=== PATIENT | female | born 1965 | race Caucasian/White ===

== ENCOUNTER 2016-02-25 06:16 | Inpatient (IN) | payer OTHER ==
--- NOTE | 2016-01-27 16:28 | History and Physical ---
History & Physical Date Jan 27, 2016. Chief Complaint Right knee pain History of Present Illness Julissa is a pleasant 50-year-old female who presents for preoperative evaluation prior to a right knee replacement. Patient states that they have been having pain in this knee for many years now, which has gradually worsened, it has now gotten to the point it is affecting her daily activities including walking, standing, going up and down steps. Patient has tried and failed conservative measures including previous cortisone injection, viscosupplementation, bracing, physical therapy, and PO NSAIDs with no relief, also had a knee arthroscopy in March 2015. At this point in time, patient has failed conservative measures and would like to proceed with a right knee replacement. Past Medical/Surgical History Medical Problems: (1) Back pain (2) DVT (deep venous thrombosis) (3) Incisional hernia (4) Pulmonary emboli (5) Pulmonary emboli (6) Pulmonary emboli Allergies Coded Allergies: No Known Allergies (Unverified , 04/29/14) Home Medications Scheduled Alprazolam (Xanax), 2 MG PO HS Apixaban (Eliquis), 5 MG PO BID Docusate Sodium (Colace), 100 MG PO DAILY Hydrochlorothiazide (Hctz), 25 MG PO DAILY Multivitamin (Multivitamin), 1 TAB PO DAILY Sertraline (Zoloft), 150 MG PO HS Sulindac ([place]inor[place]), 200 MG PO DAILY Scheduled PRN Lamotrigine (Lamictal), 100 MG PO DAILY PRN for Tramadol (Ultram), 100 MG PO TID PRN for Pain Physical Examination Skin: warm/dry, no rash Eyes: normal inspection, EOMI, sclerae normal ENT: normal ENT inspection, pharynx normal Head: normocephalic, atraumatic Neck: supple, no adenopathy, trachea midline Respiratory/Chest: lungs clear, normal breath sounds, no respiratory distress Cardiovascular: regular rate, rhythm, no edema, no murmur Addiitonal Comments: Right Knee Ankle ROM L * Active ROM - Factors: normal, Description: active pain free range of motion. Passive ROM - Factors: normal, Description: passive pain free range of motion. Ankle ROM R * Active ROM - Factors: normal, Description: active pain free range of motion. Passive ROM - Factors: normal, Description: passive pain free range of motion. Hip ROM L * Active ROM - Factors: normal, Description: active pain free range of motion. Passive ROM - Factors: normal, Description: passive pain free range of motion. Hip ROM R * Active ROM - Factors: normal, Description: active pain free range of motion. Passive ROM - Factors: normal, Description: passive pain free range of motion. Knee ROM L * Active ROM - Flexion: 120 degrees, Extension: 5 degrees, Factors: pain, Description: Active painful ROM. Knee ROM R * Active ROM - Flexion: 120 degrees, Extension: 5 degrees, Factors: pain, Description: Active painful ROM. Strength LE Normal Strength Description - Normal lower extremity: Bilateral. Knee * Inspection - Gait: Limp. Alignment - Right: varus, Clinical, Left: varus , Clinical. Ecchymosis - Right: negative, Left: negative. Effusion - Right: mild , Left: mild. Skin - Right: surgical scars, Left: surgical scars. Swelling - Right: mild, Left: mild. Maximum tenderness - Right: Medial Joint Line, Left: Medial Joint Line. Patella exam - Crepitation - Right: mild, Left: mild. Patella position - Right: neutral, Left: neutral. [facility]'s - medial - Left: Positive. Knee Normal Inspection - Atrophy - Right: Absent, Left: Absent. Patella exam - Apprehension - Right: Negative, Left: Negative. Q-angle - Right: Normal, Left: Normal. Mimi's - Right: Negative, Left: Negative. Posterior drawer - Right: Negative, Left: Negative. Anterior drawer - Right: Negative, Left: Negative. Valgus stress - Right: Negative, Left: Negative. Varus stress - Right: Negative , Left: Negative. Extensor lag - Right: Normal, Left: Normal. Neurovascular LE Normal Neurovascular examination including reflexes, sensation , and pulses is within normal limits. Diagnosis Right Knee DJD h/o Pulmonary embolism -will discuss with her PCP, discontinuing her Eliquis and bridge with lovenox. Right Knee Xray Xrays reviewed of the right knee showing findings consistent with degenerative joint disease including joint space narrowing, subchondral sclerosis and peripheral osteophyte formation. no acute bony pathology, overall varus alignment. Impression: degenerative joint disease of the right knee with no acute bony pathology noted. Plan of Treatment Further care discussed with patient and at this point in time has failed conservative measures and would like to proceed with a righ total knee replacement. Plan on discharge will be home with home health physical therapy. DVT prophalaxis with TEDs, SCDs and will also resume her Eliquis postop. Patient will have follow up appointment in our office two weeks post op for staple/suture removal and re-evaluation. Patient otherwise has no other questions or concerns.
[2016-02-04 11:02] VITALS: BMI 38.0
--- NOTE | 2016-02-04 11:38 | PAT Medication Instructions ---
Service Date Feb 04, 2016. Current Home Medication List Alprazolam (Xanax), 2 MG PO HS Apixaban (Eliquis), 5 MG PO BID Cyclobenzaprine Hcl (Flexeril), 10 MG PO HS Docusate Sodium (Colace), 100 MG PO HS Guaif/Pse/Codeine (Cheratussin Dac), 10 ML PO QAM Hydrochlorothiazide (Hctz), 25 MG PO QPM Hydrocodone/Acetaminophen 5MG/325MG ([place] 5MG/325MG), 1 TABLET PO Q4-6H PRN for Pain Multivitamin (Multivitamin), 1 TAB PO QAM Omeprazole (Prilosec), 20 MG PO HS PRN for RN Sertraline (Zoloft), 100 MG PO HS Sulindac (Clinoril), 200 MG PO BID Tramadol (Ultram), 100 MG PO Q6H PRN for Pain [Potassium], 99 MG PO PRN Medication Instructions For Your Scheduled Surgery - Instructions to be given by prescribing physician: Apixaban (Eliquis), 5 MG PO BID - Hold the following medications the morning of surgery: Multivitamin (Multivitamin), 1 TAB PO QAM [Potassium], 99 MG PO PRN Sulindac ([place]), 200 MG PO BID Guaif/Pse/Codeine (Cheratussin Dac), 10 ML PO QAM - Take the following medications the morning of surgery with a sip of water OTHERWISE NOTHING TO EAT OR DRINK AFTER MIDNIGHT: Hydrocodone/Acetaminophen 5MG/325MG ([place] 5MG/325MG), 1 TABLET PO Q4-6H PRN for Pain (may take if needed up to 4 hours prior to surgery) Tramadol (Ultram), 100 MG PO Q6H PRN for Pain (may take if needed up to 4 hours prior to surgery) - Take the following medications as scheduled the night before surgery: Sertraline (Zoloft), 100 MG PO HS Hydrochlorothiazide (Hctz), 25 MG PO QPM Cyclobenzaprine Hcl (Flexeril), 10 MG PO HS Docusate Sodium (Colace), 100 MG PO HS Alprazolam (Xanax), 2 MG PO HS Omeprazole (Prilosec), 20 MG PO HS PRN Hydrocodone/Acetaminophen 5MG/325MG ([place] 5MG/325MG), 1 TABLET PO Q4-6H PRN for Pain Tramadol (Ultram), 100 MG PO Q6H PRN for Pain Sulindac (Clinoril), 200 MG PO BID If you have any questions please call us at [phone] (Maureen Garcia PA-C) or [phone] or [phone]
[2016-02-04 12:34] LABS: BASO % 0.3 %; BASO ABS # 0.02 K/uL (0-0.2); COMPLETE YES; EOS % 1.5 %; HEMATOCRIT 42.1 % (37-47); IG% 0.3 %; LYMPH % 35.4 %; LYMPH ABS # 2.78 K/uL (1.2-3.4); MEAN CELL VOLUME 84.7 fL (80-100); MEAN CORPUSCULAR HEMOGLOBIN 29.2 pg (25-34); MEAN CORPUSCULAR HGB CONC 34.4 g/dl (32-36); MEAN PLATELET VOLUME 9.5 fL (7.4-10.4); MONO % 8.1 %; NEUT % 54.4 %; PLATELET COUNT 261 K/uL (130-400); RED BLOOD COUNT 4.97 M/uL (4.2-5.4); WHITE BLOOD COUNT 7.86 K/uL (4.8-10.8)
[2016-02-04 12:43] LABS: INR 0.9 (0.9-1.1); PARTIAL THROMBOPLASTIN RATIO 1.1
--- NOTE | 2016-02-04 12:46 | DIAGNOSTIC IMAGING REPORT ---
CHEST 2 VIEWS ROUTINE CLINICAL HISTORY: Preoperative chest COMPARISON STUDY: 08/13/2014 FINDINGS: The heart remains borderline enlarged. There is no failure. There is no focal pulmonary consolidation. There are no pleural effusions.[ IMPRESSION: No active disease in the chest. Electronically signed by: Rigoberto George M.D. 02/04/2016 12:44 PM
[2016-02-04 13:07] LABS: BUN/CREATININE RATIO 24.2 (10-20); CALCIUM 9.6 mg/dl (8.5-10.1); CREATININE 0.6 mg/dl (0.60-1.20)
[2016-02-04 13:17] LABS: ESTIMATED AVERAGE GLUCOSE 108 mg/dl; HA1C FLAG Normal (Normal)
[~2016-02-25] VITALS: Ht 162.6 cm; Wt 101.3 kg
[2016-02-25] VITALS (9 sets, daily range): BP systolic 95–128; BP diastolic 53–83; PULSE 72–85; TEMP 36.3–36.9; O2SAT 89–98; Ht 162.6 cm; Wt 101.3 kg
[~2016-02-25 06:16] MED LIST: ACETAMINOPHEN 500 MG TAB PO SCH; ALPR-385 PO; APIX1TAB3 PO; CEFAZOLIN 2000 MG/60 ML D5W 60 ML IV SCH; CYCL10TA6 PO; CeleBREX 200 MG CAP PO SCH; DEXAMETHASONE 4 MG TAB PO SCH; DOCU-94 PO; FAMOTIDINE 20 MG TAB PO SCH; GABAPENTIN 300 MG CAP PO SCH; HYDR-5688 PO; HYDR25TA4 PO; LACTATED RINGER'S 1000ML IV SCH; LACTATED RINGER'S 500 ML IV SCH; METOCLOPRAMIDE HCL 10 MG TAB PO SCH; MULT-506 PO; POTASSIUM PO; PRLSR20 PO; RBTDACL PO; ROPIVACAINE 5MG/ML 30 ML 150 MG, BUPIVACAINE/EPINEPHR 0.5% MPF 30 ML, KETOROLAC TROMETH... INFIL SCH; SERT-234 PO; SULI200T4 PO; TRAM-10 PO
[2016-02-25] MEDS ORDERED: MIDAZOLAM HCL 1 MG/ML 2ML VIAL ONE (06:23)
[2016-02-25] MEDS ORDERED: FENTANYL CITRATE INJ 50 MCG/1 ML 2 ML VIAL ONE ×3 (06:23→09:25)
[2016-02-25] MEDS ORDERED: LIDOCAINE HCL 2% 2 ML VIAL (20MG/ML) ONE (06:23)
[2016-02-25] MEDS ORDERED: PROPOFOL IV EMULSION 10 MG/ML 20 ML VIAL IV ONE ×2 (06:23→09:27)
[2016-02-25] MEDS ORDERED: BUPIVACAINE 0.5 % 5 MG/1 ML PF 10ML VIAL ONE (06:31)
[2016-02-25] MEDS ORDERED: BUPIVACAINE 0.25% 30 ML VIAL ONE (06:31)
[2016-02-25] MEDS ORDERED: ORTHO JOINT ANESTHETIC ONE (07:03)
--- NOTE | 2016-02-25 07:14 | History & Physical Bridge Note ---
H&P Re-Evaluation Bridge Note: I have examined the patient, reviewed the History & Physical and in the interval since the performance of the History & Physical I have noted the following changes of clinical significance: No changes noted
[2016-02-25] MEDS ORDERED: ONDANSETRON INJ 2 MG/ML 2 ML VIAL IV PRN ×2 (07:30→10:30)
[2016-02-25] MEDS ORDERED: EpHEDrine SULFATE INJ 50 MG/ML AMP IV PRN (07:30)
[2016-02-25] MEDS ORDERED: ATROPINE SULFATE 0.1 MG/ML 5ML SYR IV PRN (07:30)
[2016-02-25] MEDS ORDERED: ROCURONIUM BROMIDE 10 MG/ML 5 ML VIAL ONE (09:05)
[2016-02-25] MEDS ORDERED: ALBUTEROL HFA INHALER 8.5 GM INH ONE (09:05)
[2016-02-25] MEDS ORDERED: HYDROmorphone INJ 2 MG/ML SYR/VIAL ONE (09:06)
[2016-02-25] MEDS ORDERED: DEXAMETHASONE SOD INJ 4 MG/ML VIAL ONE (09:10)
[2016-02-25] MEDS ORDERED: ONDANSETRON INJ 2 MG/ML 2 ML VIAL ONE (09:10)
--- NOTE | 2016-02-25 09:56 | [facility] Post Operative Brief Note ---
Immediate Operative Summary Operative Date Feb 25, 2016. Pre-Operative Diagnosis Degenerative joint disease of right knee Post-Operative Diagnosis Same as pre-operative diagnosis Procedure(s) Performed Right Total Knee Arthroplasty, Cemented Surgeon Dr Figueroa Piler Surgeon(s) Shun Clark PA-C Estimated Blood Loss 10cc Findings severe djd rt knee Specimens A. Right knee bone and tissue Complication(s) None Disposition Recovery Room / PACU
[2016-02-25] MEDS ORDERED: POVIDONE-IODINE OP SOLN 30 ML BTL TOP ONE (09:58)
[2016-02-25] MEDS ORDERED: BACITRACIN 50000 UNIT VIAL IR ONE (09:58)
--- NOTE | 2016-02-25 10:14 | OPERATIVE REPORT ---
DATE OF OPERATION: 02/25/2016 PREOPERATIVE DIAGNOSIS: Severe end-stage degenerative joint disease, right knee. POSTOPERATIVE DIAGNOSIS: Severe end-stage degenerative joint disease, right knee. PROCEDURE: Right total knee arthroplasty utilizing Mckeon \T\ Nephew Journey II patient matched total knee arthroplasty size 6 femur, 4 tibia, 12 poly, 32 oval patella. SURGEON: Dr. Figueroa. ALCOHOL LAW ENFORCEMENT AGENT: Shun Clark, who was necessary for prepping, draping, retraction, wound closure of the deep fascia, subQ and skin and was necessary for the case. ESTIMATED BLOOD LOSS: 10 mL. TOURNIQUET TIME: 45 minutes. COMPLICATIONS: None. FINDINGS: The patient is a 50-year-old white female being seen and evaluated with complaints of ongoing pain about her knee. She has been nonresponsive to conservative therapy including physical therapy, anti-inflammatories, relative rest, activity modification, injections including viscosupplementations, as well as corticosteroid injections. She presents after discussing the risks and complications of surgery, and the patient elects to proceed forward with total knee arthroplasty. OPERATION AND FINDINGS: PROCEDURE: The patient was properly prepped and draped in supine position for total knee arthroplasty after identifying the appropriate surgical site. An anterior midline incision was made through the subcutaneous tissues down to the region of the extensor mechanism. A medial parapatellar incision was subsequently made. Meticulous hemostasis was obtained and performed at all times. The patella having been subluxed lateralward, medial and lateral meniscal remnants were excised. The patellar cut was then initially made and was sized to the appropriate size. After subluxing the tibia forward the appropriate meniscal fragments having been removed the distal femur was then cut first utilizing a Mckeon \T\ Nephew Journey II patient matched block. The distal femoral cuts and chamfer cuts were all made under direct visualization and the proximal tibial osteotomy cut was also made utilizing Mckeon \T\ Nephew Journey II patient matched blocks and checked with an extramedullary guide. The appropriate trial components on the femur and tibia were placed. Appropriate trial spacers were used to check flexion and extension gaps. With flexion and extension gaps being equal, the components were then subsequently after thorough irrigation and debridement lavage components were then subsequently cemented in the following order: size 6 femur, 4 tibia, 12 poly and 32 oval patella. Exparel was used for intraoperative anesthesia, the medial parapatellar incision was closed utilizing #1 Vicryl, subQ was closed with 2-0 Vicryl, skin was closed with skin clips. A sterile compression dressing was placed. The patient was taken to recovery room in stable condition. Due to the complex nature of the procedure, the entire surgery was performed with the operational assistance of Shun Clark PA-C. The occupational therapist assistant, under direct supervision, was involved in the actual performance of all aspects of the surgical procedure including hemostasis, tissue retraction and incision, instrument management, patient positioning, and wound closure. I attest to the content of the Intraoperative Record and any orders documented therein. Any exceptio ns are noted below.
[2016-02-25] MEDS ORDERED: ESMOLOL HCL 10 MG/ML 10 ML VIAL ONE (10:18)
[2016-02-25] MEDS ORDERED: BISACODYL 10 MG SUPP PR PRN (10:30)
[2016-02-25] MEDS ORDERED: ZOLPIDEM TARTRATE 5 MG TAB PO PRN (10:30)
[2016-02-25] MEDS ORDERED: MAGNESIUM HYDROXIDE SUSP 30 ML UDC PO PRN (10:30)
[2016-02-25] MEDS ORDERED: ALUMINUM/MAGNESIUM/SIMETH (MAALOX MAX) 30 ML UDC PO PRN (10:30)
[2016-02-25] MEDS: FENTANYL CITRATE INJ 50 MCG/1 ML 2 ML VIAL IV PRN ×2 (10:45→10:51)
[2016-02-25] MEDS: MoRPHine SULFATE 1 MG/ML 50 ML PCA CASS IV PRN ×5 (11:09→23:04)
--- NOTE | 2016-02-25 11:26 | DIAGNOSTIC IMAGING REPORT ---
TWO VIEWS RIGHT KNEE CLINICAL HISTORY: Postoperative examination. FINDINGS: AP and crosstable lateral portable views of the right knee are obtained. A right knee arthroplasty is in near anatomic alignment. There has been undersurface remodeling of the patella. No acute fracture is seen. There are expected postoperative changes around the knee including skin clips, a surgical drain, soft tissue edema, and subcutaneous gas. IMPRESSION: Expected postoperative changes status post right knee arthroplasty. No acute fracture is seen. Electronically signed by: Alexandr Ambrosio M.D. 02/25/2016 11:24 AM Dictated Date/Time: 02/25/2016 11:24 AM
--- NOTE | 2016-02-25 11:43 | Anesthesiology Progress Note ---
Anesthesia Post Op Note Date & Time Feb 25, 2016 at 11:40 Vital Signs Pain Intensity: 6.0 Vital Signs Past 12 Hours Date Time Temp Pulse Resp B/P Pulse Ox O2 Delivery O2 Flow Rate FiO2 02/25/16 11:28 37.0 02/25/16 11:25 88 17 95 02/25/16 11:25 88 17 02/25/16 11:23 133/76 02/25/16 11:20 81 14 02/25/16 11:20 82 14 95 02/25/16 11:19 84 20 95 02/25/16 11:19 85 20 02/25/16 11:18 126/83 02/25/16 11:14 82 19 95 02/25/16 11:14 81 19 02/25/16 11:13 140/73 02/25/16 11:09 88 17 02/25/16 11:09 90 17 94 02/25/16 11:08 140/78 02/25/16 11:04 71 18 02/25/16 11:04 70 18 98 02/25/16 11:03 131/80 02/25/16 10:59 84 13 02/25/16 10:59 85 13 97 02/25/16 10:58 136/85 02/25/16 10:57 82 14 97 02/25/16 10:57 82 14 02/25/16 10:53 120/79 02/25/16 10:52 77 16 92 02/25/16 10:52 78 16 02/25/16 10:48 134/77 02/25/16 10:47 91 16 02/25/16 10:47 90 16 95 02/25/16 10:46 81 17 96 02/25/16 10:46 81 17 02/25/16 10:43 134/82 02/25/16 10:41 92 18 02/25/16 10:41 93 18 97 02/25/16 10:38 120/79 02/25/16 10:36 92 12 100 02/25/16 10:36 93 12 17 10:33 124/68 02/25/16 10:31 92 17 02/25/16 10:31 36.4 97 16 135/78 99 Mask 10 02/25/16 10:31 92 17 97 02/25/16 06:50 36.5 72 20 117/76 98 Room Air Notes Mental Status: alert / awake / arousable, participated in evaluation Pt Amnestic to Procedure: Yes Nausea / Vomiting: adequately controlled Pain: adequately controlled Airway Patency, RR, SpO2: stable & adequate BP & HR: stable & adequate Hydration State: stable & adequate Anesthetic Complications: no major complications apparent Patient was awake and conversant and feeling well and appeared OK for discharge. I then noticed that her right hand had what appeared to be a rash ( petechial?) that did not taylor with pressure. Her hand was a little cold but no different from her left hand, which was unaffected. Patient stated she did NOT have this prior to surgery and stated it wasn't itchy or did not bother her. Radial pulse was full and strong and regular. Capillary refill appeared normal. She was able to open and close her hand without difficulty. Her extremities were appropriately padded and positioned on arm boards during the case. While she is ok for transfer to the floor, I consulted the hospitalist service to try and elucidate the cause of this new issue. Patient was made aware and agreed with the plan. Desmond Jenkins [facility] Staff Anesthesiologist
[2016-02-25] MEDS: KETOROLAC TROMETHAMINE 30 MG/ML VIAL IV. SCH ×3 (12:33→23:30)
[2016-02-25] MEDS: FERROUS GLUCONATE 324 MG TAB PO SCH ×2 (13:01→18:36)
[2016-02-25] MEDS: D5W AND 1/2NSS + 20MEQ KCL 1,000 ML IV SCH ×2 (13:02→22:13)
[2016-02-25] MEDS: ACETAMINOPHEN 500 MG TAB PO SCH ×2 (13:31→22:13)
[2016-02-25] MEDS ORDERED: INFLUENZA VIRUS QUAD VACCINE 0.5 ML SYR IM. ONE (14:45)
[2016-02-25] MEDS ORDERED: INFLUENZA ADMINISTRATION CHARGE ONE (14:45)
[2016-02-25] MEDS ORDERED: POTA1TAB PO (15:12)
[2016-02-25] MEDS: CEFAZOLIN IV 2,000 MG in DEXTROSE 5% 50ML 50 ML IV SCH ×2 (16:04→23:30)
--- NOTE | 2016-02-25 16:11 | Medical Consult ---
Consultation Date of Consultation: Feb 25, 2016. Attending Physician: Adam Figueroa D.O. Reason for Consultation: Medical management, rash History of Present Illness This is a 50 y/o female with a history of HTN, anxiety and depression, MTHFR mutation with h/o DVT and PE, and GERD who presents s/p right TKA with Dr. Figueroa on 02/24 for medical management and with an erythematous rash on the right hand. The patient states that she did not have this rash prior to surgery. The rash is located on the back of her right hand and stops at her wrist. She denies any pain, swelling, or itchiness in the affected area. She states that she did not notice it until the nurses in the PACU brought it to her attention. She has never had anything like this in the past. Otherwise, she is doing well post operatively. She ate lunch and is tolerating her PO diet well. She urinated without any difficulty. She denies passing gas or having a bowel movement yet. She states that she is still numb/tingling in her right lower extremity. Past Medical/Surgical History HTN Anxiety and depression MTHFR mutation H/o DVT and PE GERD Family History Blood clots (MTHFR mutation in family) FH: HTN (hypertension) FH: diabetes mellitus FH: heart disease Stroke Uterine cancer Social History Smoking Status: Current Every Day Smoker (1/2 ppd) Smokeless Tobacco Use: No Alcohol Use: none Drug Use: none Marital Status: Housing Status: lives alone Occupation Status: employed Allergies Coded Allergies: Statins (Verified Allergy, Unknown, ROSUVASTATIN,ATORVASTATIN-PAIN IN LEGS , 02/25/16) Current Inpatient Medications Current Inpatient Medications Medications (Trade) Dose Ordered Sig/Sage Route Start Time Stop Time Status Last Admin Dose Admin Cefazolin Sodium (Ancef 2000mg/60 ml D5W) 60 ml @ 100 mls/hr PREOP IV 02/25/16 06:00 02/25/16 18:00 02/25/16 08:51 100 MLS/HR Acetaminophen (Tylenol Tab) 1,000 mg PREOP PO 02/25/16 06:00 02/25/16 18:00 02/25/16 07:21 1,000 MG Celecoxib (CeleBREX CAP) 200 mg PREOP PO 02/25/16 06:00 02/25/16 18:00 02/25/16 07:19 200 MG Dexamethasone (Decadron Tab) 8 mg PREOP PO 02/25/16 06:00 02/25/16 18:00 02/25/16 07:20 8 MG Famotidine (Pepcid Tab) 20 mg PREOP PO 02/25/16 06:00 02/25/16 18:00 02/25/16 07:20 20 MG Gabapentin (Neurontin Cap) 900 mg PREOP PO 02/25/16 06:00 02/25/16 18:00 02/25/16 07:19 900 MG Metoclopramide HCl (Reglan Tab) 10 mg PREOP PO 02/25/16 06:00 02/25/16 18:00 02/25/16 07:19 10 MG Alprazolam (Xanax Tab) 2 mg HS PO 02/25/16 21:00 03/26/16 20:59 Hydrochlorothiazide (Hydrochlorothiazide Tab) 25 mg QPM PO 02/25/16 21:00 03/26/16 20:59 Multivitamins (Multivitamin Tab) 1 tab QAM PO 02/26/16 09:00 03/27/16 08:59 Sertraline HCl (Zoloft Tab) 100 mg HS PO 02/25/16 21:00 03/26/16 20:59 Morphine Sulfate 50 mg 50 mg PRN PRN IV 02/25/16 10:30 03/10/16 10:29 02/25/16 14:57 50 MG Potassium Chloride/Dextrose/ Sod Cl 1,000 ml @ 100 mls/hr Q10H IV 02/25/16 12:30 02/26/16 10:29 02/25/16 13:02 100 MLS/HR Cefazolin Sodium/ Dextrose (Ancef Iv/D5 50ml) 60 ml @ 100 mls/hr Q8H IV 02/25/16 16:00 02/26/16 00:35 Ketorolac Tromethamine (Toradol Inj) 30 mg Q6H IV. 02/25/16 12:00 02/26/16 10:29 02/25/16 12:33 30 MG Celecoxib (CeleBREX CAP) 200 mg BID PO 02/26/16 21:00 03/27/16 20:59 Oxycodone HCl (Roxicodone Immediate Rel Tab) 1 TABLET FOR PAIN RATING... Q4H PRN PO 02/25/16 10:30 03/10/16 10:29 Acetaminophen (Tylenol Tab) 1,000 mg Q8H PO 02/25/16 14:00 03/26/16 10:29 02/25/16 13:31 1,000 MG Magnesium Hydroxide (Milk Of Magnesia Susp) 30 ml Q6H PRN PO 02/25/16 10:30 03/26/16 10:29 Bisacodyl (Dulcolax Supp) 10 mg DAILY PRN NE 02/25/16 10:30 03/26/16 10:29 Senna (Senokot Tab) 17.2 mg HS PO 02/25/16 21:00 03/26/16 20:59 Docusate Sodium (coLACE CAP) 100 mg BID PO 02/25/16 21:00 03/26/16 20:59 Diphenhydramine HCl (Benadryl Inj) 25 mg Q8H PRN IV 02/25/16 10:30 03/26/16 10:29 Al Hydrox/Mg Hydrox/Simethicone (Maalox Max Susp) 15 ml Q4H PRN PO 02/25/16 10:30 03/26/16 10:29 Zolpidem Tartrate (Ambien Tab) 5 mg HSZ PRN PO 02/25/16 10:30 03/26/16 10:29 Ondansetron HCl (Zofran Inj) 4 mg Q6H PRN IV 02/25/16 10:30 03/26/16 10:29 Ferrous Gluconate (Ferrous Gluconate Tab) 324 mg TIDM PO 02/25/16 12:30 03/26/16 12:29 02/25/16 13:01 324 MG Pantoprazole Sodium (Protonix Tab) 40 mg QAM PO 02/26/16 09:00 03/27/16 08:59 Apixaban (Eliquis Tab) 5 mg BID PO 02/26/16 09:00 03/27/16 08:59 Review of Systems See HPI for pertinent positives and negatives. All other systems reviewed and negative. Physical Exam Date Time Temp Pulse Resp B/P Pulse Ox O2 Delivery O2 Flow Rate FiO2 02/25/16 15:13 36.8 78 18 103/63 89 Room Air 1/18/17 14:35 36.7 77 16 95/53 95 2.0 17 13:33 36.4 80 16 113/67 95 Nasal Cannula 3.0 17 12:35 36.3 78 18 128/75 95 Nasal Cannula 3.0 17 12:05 85 18 122/75 94 Nasal Cannula 2.0 17 11:35 36.9 77 18 126/83 92 Nasal Cannula 3.0 17 11:35 92 Nasal Cannula 3.0 17 11:28 37.0 02/24/17 11:25 88 17 95 18/17 11:25 88 17 02/24/17 11:23 133/76 02/24/17 11:20 81 14 02/24/17 11:20 82 14 95 02/24/17 11:19 84 20 95 02/24/17 11:19 85 20 18/17 11:18 126/83 02/24/17 11:14 82 19 95 02/24/17 11:14 81 19 18/17 11:13 140/73 18/17 11:09 88 17 17 11:09 90 17 94 18/17 11:08 140/78 02/24/17 11:04 71 18 18/17 11:04 70 18 98 18/17 11:03 131/80 02/24/17 10:59 84 13 18/17 10:59 85 13 97 18/17 10:58 136/85 18/17 10:57 82 14 97 18/17 10:57 82 14 18/17 10:53 120/79 18/17 10:52 77 16 92 18/17 10:52 78 16 18/17 10:48 134/77 18/17 10:47 91 16 18/17 10:47 90 16 95 18/17 10:46 81 17 96 18/17 10:46 81 17 18/17 10:43 134/82 18/17 10:41 92 18 18/17 10:41 93 18 97 18/17 10:38 120/79 18/17 10:36 92 12 100 1/18/17 10:36 93 12 1/18/17 10:33 124/68 02/25/16 10:31 92 17 02/25/16 10:31 36.4 97 16 135/78 99 Mask 10 02/25/16 10:31 92 17 97 02/25/16 06:50 36.5 72 20 117/76 98 Room Air General Appearance: WD/WN, no apparent distress, + obese Head: normocephalic, atraumatic Eyes: normal inspection, PERRL, EOMI ENT: normal ENT inspection, hearing grossly normal, pharynx normal Neck: supple, no JVD, trachea midline Respiratory/Chest: lungs clear, normal breath sounds, no respiratory distress Cardiovascular: regular rate, rhythm, no gallop, no murmur Abdomen/GI: normal bowel sounds, non tender, soft Extremities/Musculoskelatal: normal inspection, no calf tenderness, no pedal edema Neurologic/Psych: no motor/sensory deficits, alert, normal mood/affect, oriented x 3 Skin: normal color, warm/dry, + rash (erythematous rash on back side of right hand between wrist and PIP joints. Non-blanchable, non-palpable. No edema, tenderness, or warmth.) Laboratory Results Last 24 Hours Test 02/25/16 06:55 Hepatitis C Antibody Screen NEG Assessment & Plan 50 y/o female with a history of HTN, anxiety and depression, MTHFR mutation with h/o DVT and PE, and GERD who presents s/p right TKA with Dr. Figueroa on 02/24 for medical management and with an erythematous rash on the right hand. Rash located between wrist and PIP joints and is non-blanchable, non-palpable and without swelling, tenderness, or warmth. Pt denies having rash prior to surgery , was discovered in PACU. -Pain management, DVT prophylaxis, and PT/OT as per primary team -Resume Eliquis when CARLOS when okay by primary team due to h/o clots and mutation -Rash is non-symptomatic and likely just a contact dermatitis, no treatment necessary at this time but will continue to monitor HTN--last recorded BP 95/53 -Hold HCTZ for now due to hypotension, especially while receiving IVF. May resume when BP stable and IVF stopped. Anxiety and depression -Continue Zoloft 100 mg PO qd and Xanax 2 mg PO qhs Code Status -Level I, FULL RESUSCITATION STATUS Thank you for this consultation. We will continue to follow.
[2016-02-25] MEDS ORDERED: ALPRAZOLAM 0.5 MG TAB PO STA (17:00)
[2016-02-25] MEDS ORDERED: HYDROCHLOROTHIAZIDE 25 MG TAB PO SCH (21:00)
[2016-02-25] MEDS: SENNA 8.6 MG TAB PO SCH (21:03)
[2016-02-25] MEDS: DOCUSATE SODIUM 100 MG CAP PO SCH (21:03)
[2016-02-25] MEDS: SERTRALINE HCL 100 MG TAB PO SCH (21:03)
[2016-02-25] MEDS: ALPRAZOLAM 0.5 MG TAB PO SCH (21:03)
[2016-02-26] VITALS (7 sets, daily range): BP systolic 93–126; BP diastolic 59–77; PULSE 63–84; TEMP 36.6–36.9; O2SAT 95–99
[2016-02-26] MEDS: DiphenhydrAMINE HCL 50 MG/ML VIAL IV PRN ×2 (01:22→03:28)
[2016-02-26] MEDS ORDERED: NURSING VERBAL MED ORDER ONE ×3 (03:30→15:30)
[2016-02-26] MEDS ORDERED: DiphenhydrAMINE HCL 50 MG/ML VIAL IV ONE (03:45)
[2016-02-26] MEDS: KETOROLAC TROMETHAMINE 30 MG/ML VIAL IV. SCH (05:33)
[2016-02-26] MEDS: ACETAMINOPHEN 500 MG TAB PO SCH ×3 (05:34→21:43)
[2016-02-26 06:29] LABS: HEMATOCRIT 28.9 % (37-47); MEAN CELL VOLUME 85.3 fL (80-100); MEAN CORPUSCULAR HEMOGLOBIN 29.2 pg (25-34); MEAN CORPUSCULAR HGB CONC 34.3 g/dl (32-36); MEAN PLATELET VOLUME 9.3 fL (7.4-10.4); PLATELET COUNT 204 K/uL (130-400); RED BLOOD COUNT 3.39 M/uL (4.2-5.4); WHITE BLOOD COUNT 12.26 K/uL (4.8-10.8)
[2016-02-26 06:57] LABS: BUN/CREATININE RATIO 20.9 (10-20); CALCIUM 8.8 mg/dl (8.5-10.1); CREATININE 0.8 mg/dl (0.60-1.20)
[2016-02-26] MEDS: MoRPHine SULFATE 1 MG/ML 50 ML PCA CASS IV PRN (07:03)
[2016-02-26] MEDS ORDERED: MULTIVITAMIN TAB PO SCH (09:00)
[2016-02-26] MEDS: FERROUS GLUCONATE 324 MG TAB PO SCH ×3 (09:04→17:53)
--- NOTE | 2016-02-26 09:04 | Progress Note ---
Subjective Date of Service: Feb 26, 2016. Subjective Pt evaluation today including: conversation w/ patient, physical exam, chart review, lab review, review of studies, conversation w/ talent development consultant, review of inpatient medication list Doing good, no complaining, eating drinking well, no problem in bowel movement or urination Review of Systems Constitutional: + fatigue, + weakness, No chills, No fever, No problem reported , No sweats, No weight loss Eyes: No diplopia, No discharge, No eye pain, No redness, No worsening of vision ENT: No dental problems, No hearing loss, No nasal symptoms, No sore throat, No tinnitus, No trouble swallowing, No unusual epistaxis Respiratory: No cough, No dyspnea at rest, No dyspnea on exertion, No hemoptysis, No shortness of breath, No sputum, No wheezing Cardiac: No PND, No chest pain, No claudication, No edema, No orthopnea, No palpitations Abdomen: No constipation, No diarrhea, No nausea, No pain, No vomiting Musculoskeletal: + joint pain, No calf pain, No muscle pain, No swelling Female : No abnormal vaginal bleeding, No dysuria, No hematuria, No incontinence, No urinary frequency, No vaginal discharge Neurologic: No balance problems, No memory loss, No numbness/tingling, No paralysis, No vertigo, No weakness Psychiatric: No anhedonism, No anxiety, No depression symptoms, No insomnia, No substance abuse Heme: No abnormal bleeding/bruising, No clotting problems, No night sweats, No swollen lymph nodes Endo: No excessive thirst, No excessive urination, No fatigue Skin: No bleeding, No color change, No itch, No new/changing skin lesions, No rash Objective Vital Signs Date Time Temp Pulse Resp B/P Pulse Ox O2 Delivery O2 Flow Rate FiO2 02/26/16 08:17 36.6 63 12 94/59 96 Room Air 02/26/16 02:37 36.7 64 14 98/61 95 Room Air 02/25/16 23:55 Room Air 02/25/16 23:12 36.9 73 16 96/58 93 Room Air 02/25/16 20:21 36.9 73 18 98/61 91 Room Air 02/25/16 15:45 Room Air 02/25/16 15:13 36.8 78 18 103/63 89 Room Air 1/18/17 14:35 36.7 77 16 95/53 95 2.0 17 13:33 36.4 80 16 113/67 95 Nasal Cannula 3.0 17 12:35 36.3 78 18 128/75 95 Nasal Cannula 3.0 17 12:05 85 18 122/75 94 Nasal Cannula 2.0 17 11:35 36.9 77 18 126/83 92 Nasal Cannula 3.0 17 11:35 92 Nasal Cannula 3.0 17 11:28 37.0 02/24/17 11:25 88 17 95 18/17 11:25 88 17 02/24/17 11:23 133/76 02/24/17 11:20 81 14 02/24/17 11:20 82 14 95 02/24/17 11:19 84 20 95 02/24/17 11:19 85 20 18/17 11:18 126/83 02/24/17 11:14 82 19 95 02/24/17 11:14 81 19 18/17 11:13 140/73 18/17 11:09 88 17 17 11:09 90 17 94 18/17 11:08 140/78 02/24/17 11:04 71 18 18/17 11:04 70 18 98 18/17 11:03 131/80 02/24/17 10:59 84 13 18/17 10:59 85 13 97 18/17 10:58 136/85 18/17 10:57 82 14 97 18/17 10:57 82 14 18/17 10:53 120/79 18/17 10:52 77 16 92 18/17 10:52 78 16 18/17 10:48 134/77 18/17 10:47 91 16 18/17 10:47 90 16 95 18/17 10:46 81 17 96 18/17 10:46 81 17 18/17 10:43 134/82 18/17 10:41 92 18 18/17 10:41 93 18 97 18/17 10:38 120/79 18/17 10:36 92 12 100 1/18/17 10:36 93 12 1/18/17 10:33 124/68 02/25/16 10:31 92 17 02/25/16 10:31 36.4 97 16 135/78 99 Mask 10 02/25/16 10:31 92 17 97 Physical Exam General Appearance: WD/WN, no apparent distress, + obese Eyes: normal inspection, PERRL, EOMI, sclerae normal ENT: normal ENT inspection, hearing grossly normal, pharynx normal Neck: supple, no adenopathy, thyroid normal, no JVD, no carotid bruits, trachea midline Respiratory/Chest: chest non-tender, lungs clear, normal breath sounds, no respiratory distress, no accessory muscle use Cardiovascular: regular rate, rhythm, no edema, no gallop, no JVD, no murmur Abdomen: normal bowel sounds, non tender, soft, no organomegaly, no pulsatile mass Extremities: non-tender, normal inspection, no pedal edema, no calf tenderness , normal capillary refill, pelvis stable, + pertinent finding (right knee is in dress and drainage is going on, SCD bilateral lower treatment he is in place, the colors and capillary refill in bilateral lower extremity is normal) Neurologic/Psychiatric: machine coremaker II-XII nml as tested, no motor/sensory deficits, alert, normal mood/affect, oriented x 3 Skin: normal color, warm/dry, no rash Lymphatic: no adenopathy Laboratory Results Last 24 Hours Test 02/26/16 05:55 White Blood Count 12.26 K/uL Red Blood Count 3.39 M/uL Hemoglobin 9.9 g/dL Hematocrit 28.9 % Mean Corpuscular Volume 85.3 fL Mean Corpuscular Hemoglobin 29.2 pg Mean Corpuscular Hemoglobin Concent 34.3 g/dl RDW Standard Deviation 43.0 fL RDW Coefficient of Variation 13.8 % Platelet Count 204 K/uL Mean Platelet Volume 9.3 fL Sodium Level 136 mmol/L Potassium Level 4.0 mmol/L Chloride Level 101 mmol/L Carbon Dioxide Level 26 mmol/L Anion Gap 9.0 mmol/L Blood Urea Nitrogen 17 mg/dl Creatinine 0.80 mg/dl Est Creatinine Clear Calc Drug Dose 95.3 ml/min Estimated GFR () 98.2 Estimated GFR (Non- 84.8 BUN/Creatinine Ratio 20.9 Random Glucose 108 mg/dl Calcium Level 8.8 mg/dl Assessment and Plan 50 y/o female with a history of HTN, anxiety and depression, MTHFR mutation with h/o DVT and PE, and GERD who presents s/p right TKA with Dr. Figueroa on 02/24 for medical management and with an erythematous rash on the right hand. -Pain management, DVT prophylaxis, and PT/OT as per primary team - Eliquis is resumed by 1st team -Rash is non-symptomatic and likely just a contact dermatitis, is resolved HTN--last recorded BP 95/53, still in borderline low, pt is asymptomatic -cont Hold HCTZ for now due to hypotension, will Dc ivf Acute blood lost anemia with hemoglobin drop, this is not unexpected, we'll continue watching Anxiety and depression -Continue Zoloft 100 mg PO qd and Xanax 2 mg PO qhs Code Status -Level I, FULL RESUSCITATION STATUS Continued [facility] stay due to: multiple IV medications needed Discharge planning: uncertain
[2016-02-26] MEDS: MULTIVITAMIN TAB PO SCH (09:05)
[2016-02-26] MEDS: PANTOprazole SOD 40 MG TAB PO SCH (09:05)
[2016-02-26] MEDS: APIXABAN 2.5 MG TAB PO SCH ×2 (09:07→20:35)
[2016-02-26] MEDS ORDERED: SODIUM CHLORIDE 0.9% 1000ML 1,000 ML IV SCH (10:00)
[2016-02-26] MEDS ORDERED: NALOXONE HCL 0.4 MG/1 ML VIAL/CARP IV PRN (10:00)
[2016-02-26] MEDS: DOCUSATE SODIUM 100 MG CAP PO SCH ×2 (10:19→20:35)
--- NOTE | 2016-02-26 10:54 | Orthopedic Progress Note ---
Orthopedic Progress Note Date of Service Feb 26, 2016. Subjective Post OP Day: 1 Reports: feeling well Objective N/V intact, dressing C/D/I (Hemovac in place), toes mobile Date Time Temp Pulse Resp B/P Pulse Ox O2 Delivery O2 Flow Rate FiO2 02/26/16 10:16 79 97 02/26/16 08:17 36.6 63 12 94/59 96 Room Air 02/26/16 07:15 Room Air 02/26/16 02:37 36.7 64 14 98/61 95 Room Air 02/25/16 23:55 Room Air 02/25/16 23:12 36.9 73 16 96/58 93 Room Air 02/25/16 20:21 36.9 73 18 98/61 91 Room Air 02/25/16 15:45 Room Air 02/25/16 15:13 36.8 78 18 103/63 89 Room Air 02/25/16 14:35 36.7 77 16 95/53 95 2.0 02/25/16 13:33 36.4 80 16 113/67 95 Nasal Cannula 3.0 02/25/16 12:35 36.3 78 18 128/75 95 Nasal Cannula 3.0 02/25/16 12:05 85 18 122/75 94 Nasal Cannula 2.0 02/25/16 11:35 36.9 77 18 126/83 92 Nasal Cannula 3.0 02/25/16 11:35 92 Nasal Cannula 3.0 02/25/16 11:28 37.0 02/25/16 11:25 88 17 95 02/25/16 11:25 88 17 02/25/16 11:23 133/76 02/25/16 11:20 81 14 02/25/16 11:20 82 14 95 02/25/16 11:19 84 20 95 02/25/16 11:19 85 20 02/25/16 11:18 126/83 02/25/16 11:14 82 19 95 02/25/16 11:14 81 19 02/25/16 11:13 140/73 02/25/16 11:09 88 17 02/25/16 11:09 90 17 94 02/25/16 11:08 140/78 02/25/16 11:04 71 18 02/25/16 11:04 70 18 98 02/25/16 11:03 131/80 02/25/16 10:59 84 13 02/25/16 10:59 85 13 97 02/25/16 10:58 136/85 02/25/16 10:57 82 14 97 02/25/16 10:57 82 14 02/25/16 10:53 120/79 02/25/16 10:52 77 16 92 02/25/16 10:52 78 16 Laboratory Results 24 Hours: Test 02/26/16 05:55 Hematocrit 28.9 % Hemoglobin 9.9 g/dL Assessment & Plan Assessment: 50 yo female stable POD #1 s/p right TKA, acute blood loss anemia Plan: 1. Med management 2. DVT prophylaxis- resume Aleyda, TEDs, SCDs 3. PT/OT 4. D/C planning- home w/ HH
--- NOTE | 2016-02-26 12:59 | Anesthesiology Progress Note ---
Anesthesia Post Op Note Date & Time Feb 26, 2016 at 12:59 Vital Signs Vital Signs Past 12 Hours Date Time Temp Pulse Resp B/P Pulse Ox O2 Delivery O2 Flow Rate FiO2 02/26/16 11:49 36.6 64 12 93/61 95 Room Air 02/26/16 10:16 79 97 02/26/16 08:17 36.6 63 12 94/59 96 Room Air 02/26/16 07:15 Room Air 02/26/16 02:37 36.7 64 14 98/61 95 Room Air Notes Mental Status: alert / awake / arousable, participated in evaluation Pt Amnestic to Procedure: Yes Nausea / Vomiting: adequately controlled Pain: adequately controlled Airway Patency, RR, SpO2: stable & adequate BP & HR: stable & adequate Hydration State: stable & adequate Anesthetic Complications: no major complications apparent
[2016-02-26] MEDS ORDERED: MoRPHine SULFATE 4 MG/ML 1 ML CARP\\VIAL IV PRN (15:30)
[2016-02-26] MEDS: OXYCODONE HCL IR 5 MG TAB (IMMEDIATE RELEASE) PO PRN ×2 (16:26→20:39)
--- NOTE | 2016-02-26 16:29 | Discharge Instructions ---
Discharge Instructions Admission Reason for Admission: Right Knee Osteoarthritis Discharge Discharge Diagnosis / Problem: Right Total Knee Replacement Discharge Goals Goal(s): Decrease discomfort, Improve function, Increase independence Activity Recommendations Activity Limitations: as noted below Weightbearing Status: Right weightbearing (as tolerated) . Instructions / Follow-Up Instructions / Follow-Up ACTIVITY RECOMMENDATIONS: SELF CARE INSTRUCTIONS AFTER TOTAL KNEE REPLACEMENT A. You may need to continue a physical therapy program after discharge from the hospital. There are several options available to you. Your doctor will assist you in selecting the best one for you. 1. An out-patient facility 2 to 3 times a week for therapy or home therapy. 2. Continue working on all exercises taught to you in the hospital. Your goals should be to increase bending of your knee to 90 degrees and beyond and to fully straighten your knee. B. You may progress at your own pace from walking with a walker or crutches to a cane; then to no assistive devices. C. Make walking a part of your daily routine. Be up as much as comfortable with rest periods throughout the day. Rest with leg elevation is very important. Use the ice wrap frequently for the first 3-4 weeks. D. There are no restrictions on activities. You may ride in a car, shop, participate in tow operator and all social activities. E. Wear the long elastic stockings (ALONSO hose) 20 hours a day for 2 weeks after surgery. They can be removed several times a day for laundering and for a bath. F. You may shower, no tub baths until cleared by your doctor. SPECIAL CARE INSTRUCTIONS: VERY IMPORTANT TO READ AND REVIEW A. There are a few signs you need to watch for after you are home. Call [facility] if you notice any of the followin. Increased severe knee pain. Some pain is expected especially when you exercise. 2. Increased swelling in your leg or knee; pain or swelling of the calf muscle in either lower leg. 3. Any fluid drainage from the incision. 4. Shortness of breath or chest pain. B. Please call [facility] at if you have any concerns or questions about your operation or recovery. The doctor or his nurse will return your call promptly. C. You must take antibiotics before dental work, bladder, bowel or other surgery. Your doctor will provide you with a permanent care to carry describing this precaution. IMPORTANT: * REMEMBER TO TAKE ASPIRIN, 81 MG, TWICE DAILY FOR 4 WEEKS UNLESS OTHERWISE DIRECTED. THIS IS YOUR BLOOD THINNER. * HIGH RISK PATIENTS MAY BE PRESCRIBED A STRONGER BLOOD THINNER. THIS WILL BE PROVIDED AT DISCHARGE. * CALL IF INCREASED PAIN, REDNESS, DRAINAGE OR FEVER GREATER THAT 101. * WEAR ALONSO HOSE 20 HOURS PER DAY FOR 2 WEEKS. * YOU MAY HAVE A LARGE BAND-AID LIKE DRESSING (SILVERON). THIS WILL REMAIN ON YOUR INCISION FOR 7 DAYS, THEN CAN BE REMOVED. IF INCISION IS LEAKING THROUGH DRESSING, CALL THE OFFICE . FOLLOW UP VISIT: If appointment is not already scheduled: Please call [facility] to make a follow-up appointment for 2 weeks after your surgery at . Current Hospital Diet Patient's current hospital diet: Regular Diet Discharge Diet Recommended Diet: Regular Diet Procedures Procedures Performed: Right Total Knee Arthroplasty, Cemented Pending Studies Studies pending at discharge: no Laboratory Results Hemoglobin A1c Test 02/04/16 11:43 Range/Units Estimated Average Glucose 108 mg/dl Hemoglobin A1c 5.4 4.5-5.6 % Medical Emergencies . Who to Call and When: Medical Emergencies: If at any time you feel your situation is an emergency, please call [phone] immediately. . Non-Emergent Contact Non-Emergency issues call your: Primary Care Provider, Surgeon . "Provider Documentation" section prepared by Inocente Wood. VTE Core Measure Inpt VTE Proph given/why not?: Other Anticoagulation (Eliquis as directed), T.E.D. Stockings, SCD's
[2016-02-26] MEDS: MoRPHine SULFATE 2 MG/ML CARP IV PRN ×2 (19:02→23:58)
[2016-02-26] MEDS: CeleBREX 200 MG CAP PO SCH (20:35)
[2016-02-26] MEDS: SERTRALINE HCL 100 MG TAB PO SCH (20:35)
[2016-02-26] MEDS: SENNA 8.6 MG TAB PO SCH (20:36)
[2016-02-26] MEDS: ALPRAZOLAM 0.5 MG TAB PO SCH (20:36)
[2016-02-27] MEDS: ACETAMINOPHEN 500 MG TAB PO SCH (05:46)
[2016-02-27] MEDS: OXYCODONE HCL IR 5 MG TAB (IMMEDIATE RELEASE) PO PRN ×2 (05:46→10:33)
[2016-02-27 06:55] VITALS: BP 129/74; PULSE 78; TEMP 36.6; O2SAT 93
--- NOTE | 2016-02-27 07:59 | Orthopedic Progress Note ---
Orthopedic Progress Note Date of Service Feb 27, 2016. Subjective Post OP Day: 2 Reports: feeling well, pain controlled w PO medications, Denies: SOB, calf pain , chest pain, complaints, light headedness, nausea / vomiting Objective calves soft nontender, N/V intact, capillary refill less than 2 sec., dressing C /D/I (prevena intact), A&O x3, toes mobile Date Time Temp Pulse Resp B/P Pulse Ox O2 Delivery O2 Flow Rate FiO2 02/27/16 07:24 Room Air 02/27/16 06:55 36.6 78 16 129/74 93 Room Air 02/26/16 23:40 Room Air 02/26/16 22:58 36.9 84 15 126/75 97 Room Air 02/26/16 15:59 36.8 77 18 121/77 97 Room Air 02/26/16 15:15 Room Air 02/26/16 13:48 36.7 69 16 104/66 99 Room Air 02/26/16 11:49 36.6 64 12 93/61 95 Room Air 02/26/16 10:16 79 97 02/26/16 08:17 36.6 63 12 94/59 96 Room Air Laboratory Results 24 Hours: Test 02/27/16 07:44 Assessment & Plan Assessment: 50 yo female stable POD #2 s/p right TKA, - d/c home later today if H/H stable acute blood loss anemia- labs pending from 02/27/16 Plan: 1. Med management 2. DVT prophylaxis- resume Aleyda, ALONSOs, SCDs 3. PT/OT 4. D/C planning- home w/ HH Discharge Planning Discharge Planning: home with home health
[2016-02-27] MEDS ORDERED: ONDA8TAB6 PO (08:07)
[2016-02-27] MEDS ORDERED: RXC5 PO (08:07)
[2016-02-27] MEDS ORDERED: ACET-1138 PO (08:07)
[2016-02-27 08:18] LABS: HEMATOCRIT 29.3 % (37-47); MEAN CELL VOLUME 85.7 fL (80-100); MEAN CORPUSCULAR HEMOGLOBIN 29.2 pg (25-34); MEAN CORPUSCULAR HGB CONC 34.1 g/dl (32-36); MEAN PLATELET VOLUME 9.2 fL (7.4-10.4); PLATELET COUNT 188 K/uL (130-400); RED BLOOD COUNT 3.42 M/uL (4.2-5.4); WHITE BLOOD COUNT 8.94 K/uL (4.8-10.8)
[2016-02-27] MEDS: PANTOprazole SOD 40 MG TAB PO SCH (08:47)
[2016-02-27] MEDS: FERROUS GLUCONATE 324 MG TAB PO SCH (08:49)
[2016-02-27] MEDS: APIXABAN 2.5 MG TAB PO SCH (08:49)
[2016-02-27] MEDS: CeleBREX 200 MG CAP PO SCH (08:49)
[2016-02-27] MEDS: MULTIVITAMIN TAB PO SCH (08:49)
[2016-02-27] MEDS: DOCUSATE SODIUM 100 MG CAP PO SCH (08:49)
[2016-02-27 08:54] LABS: BUN/CREATININE RATIO 19.7 (10-20); CALCIUM 8.7 mg/dl (8.5-10.1); CREATININE 0.61 mg/dl (0.60-1.20); POTASSIUM 3.7 mmol/L (3.5-5.1)
--- NOTE | 2016-02-27 10:12 | Hospitalist Progress Note ---
Hospitalist Progress Note Date of Service Feb 27, 2016. Subjective Pt evaluation today including: conversation w/ patient, physical exam, chart review, lab review PO Intake: Tolerating PO diet Voiding: no voiding problems Patient reports feeling well and is eager for discharge. She states that her right knee has been stiff but the pain is manageable. She no longer complains of a rash on her right hand. She denies any complaints. The patient denies fevers, chills, sweats, chest pain, palpitations, claudication, cough, wheezing , shortness of breath, nausea, vomiting, abdominal pain, dysuria, hematuria, urinary retention, paralysis, weakness, numbness and tingling. Additional Comments: See HPI for pertinent positives and negatives. All other systems reviewed and negative. Objective Vital Signs Date Time Temp Pulse Resp B/P Pulse Ox O2 Delivery O2 Flow Rate FiO2 02/27/16 07:24 Room Air 02/27/16 06:55 36.6 78 16 129/74 93 Room Air 02/26/16 23:40 Room Air 02/26/16 22:58 36.9 84 15 126/75 97 Room Air 02/26/16 15:59 36.8 77 18 121/77 97 Room Air 02/26/16 15:15 Room Air 02/26/16 13:48 36.7 69 16 104/66 99 Room Air 02/26/16 11:49 36.6 64 12 93/61 95 Room Air 02/26/16 10:16 79 97 Physical Exam General Appearance: WD/WN, no apparent distress, + obese Eyes: normal inspection, PERRL, EOMI ENT: normal ENT inspection, hearing grossly normal, pharynx normal Neck: supple, no JVD, trachea midline Respiratory/Chest: lungs clear, normal breath sounds, no respiratory distress, + decreased breath sounds Cardiovascular: regular rate, rhythm, no gallop, no murmur Abdomen: normal bowel sounds, non tender, soft Extremities: normal inspection, no pedal edema, no calf tenderness, + pertinent finding (wound vac on right knee) Neurologic/Psychiatric: alert, normal mood/affect, oriented x 3 Skin: normal color, warm/dry, no rash Laboratory Results Last 24 Hours Test 02/27/16 08:05 White Blood Count 8.94 K/uL Red Blood Count 3.42 M/uL Hemoglobin 10.0 g/dL Hematocrit 29.3 % Mean Corpuscular Volume 85.7 fL Mean Corpuscular Hemoglobin 29.2 pg Mean Corpuscular Hemoglobin Concent 34.1 g/dl RDW Standard Deviation 42.8 fL RDW Coefficient of Variation 13.7 % Platelet Count 188 K/uL Mean Platelet Volume 9.2 fL Sodium Level 145 mmol/L Potassium Level 3.7 mmol/L Chloride Level 111 mmol/L Carbon Dioxide Level 27 mmol/L Anion Gap 7.0 mmol/L Blood Urea Nitrogen 12 mg/dl Creatinine 0.61 mg/dl Est Creatinine Clear Calc Drug Dose 124.9 ml/min Estimated GFR () 120.8 Estimated GFR (Non- 104.2 BUN/Creatinine Ratio 19.7 Random Glucose 91 mg/dl Calcium Level 8.7 mg/dl Assessment and Plan 50 y/o female with a history of HTN, anxiety and depression, MTHFR mutation with h/o DVT and PE, and GERD who presents s/p right TKA with Dr. Figueroa on 02/24 for medical management and with an erythematous rash on the right hand. Rash located between wrist and PIP joints and is non-blanchable, non-palpable and without swelling, tenderness, or warmth. Pt denies having rash prior to surgery , was discovered in PACU. -Pain management, DVT prophylaxis, and PT/OT as per primary team -Rash--resolved. Was non-symptomatic and likely just a contact dermatitis HTN--stable -May resume HCTZ upon discharge Anxiety and depression -Continue Zoloft 100 mg PO qd and Xanax 2 mg PO qhs Code Status -Level I, FULL RESUSCITATION STATUS Pt. is stable from a medical standpoint, we will sign off. Clear for discharge as per primary team.
[2016-02-27 10:34] VITALS: BP 129/74; PULSE 78; TEMP 36.6; O2SAT 93
--- NOTE | 2016-03-02 00:14 | DISCHARGE SUMMARY ---
DISCHARGE DIAGNOSIS: Degenerative joint disease, right knee. SECONDARY DIAGNOSES: History of deep venous thrombosis in the past along with pulmonary embolus, hypertension, anxiety, depression, MTHFR mutation, gastroesophageal reflux disease. CONSULTS: Mariana Segura PA-C/Saeed Watkins MD COMPLICATIONS: None. PROCEDURES: Right total knee arthroplasty performed by Dr. Figueroa on 02/25/2016. BRIEF HISTORY: As dictated in the history of present illness. SUMMARY: The patient was admitted on the above-noted date and had the above-noted surgery performed which she tolerated well. On the first postoperative day, patient was feeling well, neurovascularly intact. Dressings clean, dry and intact. Toes were mobile. Vital signs were stable with BPs fluctuating from 126 systolic down to 94. Hemoglobin was 9.9. She was started on physical therapy protocol and continued on DVT prophylaxis and pain management and continued on medical management per [facility]. By her second postoperative day, she was feeling well and pain was controlled. She had no complaints. Calves were soft and nontender. Neurovascularly was intact. Dressings clean, dry and intact. Toes were mobile. Vital signs were stable, and she was remaining afebrile. She was progressing with her physical therapy and remaining medically stable as well as orthopedically stable, and it was felt that she could be discharged to home with home health services. For further review, please see chart. LAB AND X-RAY DATA: As per chart. DISCHARGE INSTRUCTIONS: The patient was discharged to home in satisfactory condition on 02/27/2016. DIET: Regular. ACTIVITY: Weightbearing as tolerated, right lower extremity. Follow TKA instruction sheets and special care instructions as noted. Follow up with Dr. Figueroa in 2 weeks. The patient to call for appointment if one has not been made for you. DISCHARGE MEDICATIONS: Acetaminophen 1000 mg p.o. q. 8 hours, Zofran 8 mg p.o. q. 8 hours, oxycodone 5-10 mg p.o. q. 4 hours p.r.n. Resume taking Xanax 2 mg at bedtime, apixaban 5 mg p.o. b.i.d., Flexeril 10 mg p.o. at bedtime, Colace 100 mg p.o. at bedtime, Cheratussin DAC 10 mL p.o. q.a.m., hydrochlorothiazide 25 mg p.o. q.p.m., multivitamin 1 tab p.o. q.a.m., omeprazole 20 mg p.o. at bedtime p.r.n., potassium gluconate 595 mg p.o. daily, Zoloft 100 mg p.o. at bedtime. Stop taking Harwood, Clinoril, and Ultram.
[2016-06-03] MEDS ORDERED: CETI10TA84 PO (09:49)
[2016-06-03] MEDS ORDERED: TRAM-10 PO (09:49)
[2016-06-03] MEDS ORDERED: ALBU18002 INH (09:49)
[2016-06-03] MEDS ORDERED: CLN200 PO (09:49)
== END 2016-02-27 11:27 | disposition home health service (06) | DRG 470 ==
LOC: ENRESERVTM → ENRESERVDT → C.ACU 06:16 → C.MSN 10:39
PROVIDERS: ADMIT Orthopaedic Surgery; ATTEND Orthopaedic Surgery
PROC: 0SRC0J9 Replacement of Right Knee Joint with Synthetic Substitute, Cemented, Open Approach (ICD-10-PCS; principal; 2016-02-25 08:30)
DX: M17.11 Unilateral primary osteoarthritis, right knee (principal); D62 Acute posthemorrhagic anemia; I10 Essential (primary) hypertension; F32.9 Major depressive disorder, single episode, unspecified; K21.9 Gastro-esophageal reflux disease without esophagitis; F41.9 Anxiety disorder, unspecified; F17.210 Nicotine dependence, cigarettes, uncomplicated; Z86.718 Personal history of other venous thrombosis and embolism; Z86.711 Personal history of pulmonary embolism; Z83.3 Family history of diabetes mellitus; Z82.3 Family history of stroke; Z82.49 Family history of ischemic heart disease and other diseases of the circulatory system; Z80.59 Family history of malignant neoplasm of other urinary tract organ; R21 Rash and other nonspecific skin eruption; I95.9 Hypotension, unspecified

== ENCOUNTER 2016-06-23 05:02 | Inpatient (IN) | payer OTHER ==
--- NOTE | 2016-05-25 18:57 | History and Physical ---
History & Physical Date of Service May 25, 2016. History & Physical History & Physical Date 05/25/16 Chief Complaint Left knee pain History of Present Illness Julissa is a pleasant 50-year-old female who presents for preoperative evaluation prior to a left knee replacement. Patient states that they have been having pain in this knee for many years now, which has gradually worsened, it has now gotten to the point it is affecting her daily activities including walking, standing, going up and down steps. Patient has tried and failed conservative measures including previous cortisone injection, viscosupplementation, bracing, physical therapy, and PO NSAIDs with no relief, she recently had her right knee replaced in February 2016 and is doing well. At this point in time, patient has failed conservative measures and would like to proceed with a left knee replacement. Past Medical/Surgical History Medical Problems: (1) Back pain (2) DVT (deep venous thrombosis) (3) Incisional hernia (4) Pulmonary emboli Allergies Coded Allergies: No Known Allergies (Unverified , 04/29/14) Home Medications Scheduled Alprazolam (Xanax), 2 MG PO HS Apixaban (Eliquis), 5 MG PO BID Docusate Sodium (Colace), 100 MG PO DAILY Hydrochlorothiazide (Hctz), 25 MG PO DAILY Multivitamin (Multivitamin), 1 TAB PO DAILY Sertraline (Zoloft), 150 MG PO HS Sulindac (Clinoril), 200 MG PO DAILY Scheduled PRN Lamotrigine (Lamictal), 100 MG PO DAILY PRN for Tramadol (Ultram), 100 MG PO TID PRN for Pain Physical Examination Skin: warm/dry, no rash Eyes: normal inspection, EOMI, sclerae normal ENT: normal ENT inspection, pharynx normal Head: normocephalic, atraumatic Neck: supple, no adenopathy, trachea midline Respiratory/Chest: lungs clear, normal breath sounds, no respiratory distress Cardiovascular: regular rate, rhythm, no edema, no murmur Addiitonal Comments: Left Knee Ankle ROM L * Active ROM - Factors: normal, Description: active pain free range of motion. Passive ROM - Factors: normal, Description: passive pain free range of motion. Ankle ROM R * Active ROM - Factors: normal, Description: active pain free range of motion. Passive ROM - Factors: normal, Description: passive pain free range of motion. Hip ROM L * Active ROM - Factors: normal, Description: active pain free range of motion. Passive ROM - Factors: normal, Description: passive pain free range of motion. Hip ROM R * Active ROM - Factors: normal, Description: active pain free range of motion. Passive ROM - Factors: normal, Description: passive pain free range of motion. Knee ROM L * Active ROM - Flexion: 120 degrees, Extension: 5 degrees, Factors: pain, Description: Active painful ROM. Knee ROM R * Active ROM - Flexion: 110 degrees, Extension: 0 degrees, Factors: pain, Description: Active painful ROM. well healed surgical incision from TKA Strength LE Normal Strength Description - Normal lower extremity: Bilateral. Knee * Inspection - Gait: Limp. Alignment - Left: varus, Clinical, Left: varus, Clinical. Ecchymosis - Right: negative, Left: negative. Effusion - Right: mild, Left: mild. Skin - Right: surgical scars, Left: surgical scars. Swelling - Right : mild, Left: mild. Maximum tenderness - Right: Medial Joint Line, Left: Medial Joint Line. Patella exam - Crepitation - Right: mild, Left: mild. Patella position - Right: neutral, Left: neutral. [facility]'s - medial - Left: Positive. Knee Normal Inspection - Atrophy - Right: Absent, Left: Absent. Patella exam - Apprehension - Right: Negative, Left: Negative. Q-angle - Right: Normal, Left: Normal. Mimi's - Right: Negative, Left: Negative. Posterior drawer - Right: Negative, Left: Negative. Anterior drawer - Right: Negative, Left: Negative. Valgus stress - Right: Negative, Left: Negative. Varus stress - Right: Negative , Left: Negative. Extensor lag - Right: Normal, Left: Normal. Neurovascular LE Normal Neurovascular examination including reflexes, sensation , and pulses is within normal limits. Diagnosis Left Knee DJD -will proceed with Left TKA, her right knee is now doing well s/p TKA and would like to proceed with her left knee. h/o Pulmonary embolism -will discuss with her PCP, discontinuing her Eliquis and bridge with lovenox. Left Knee Xray Xrays reviewed of the left knee showing findings consistent with degenerative joint disease including joint space narrowing, subchondral sclerosis and peripheral osteophyte formation. no acute bony pathology, overall varus alignment. Impression: degenerative joint disease of the Left knee with no acute bony pathology noted. Plan of Treatment Further care discussed with patient and at this point in time has failed conservative measures and would like to proceed with a Left total knee replacement. Plan on discharge will be home with home health physical therapy. DVT prophalaxis with TEDs, SCDs and will also resume her Eliquis postop. Patient will have follow up appointment in our office two weeks post op for staple/suture removal and re-evaluation. Patient otherwise has no other questions or concerns.
[2016-06-03 09:49] VITALS: BMI 39.0
--- NOTE | 2016-06-03 10:12 | PAT Medication Instructions ---
Service Date Jun 03, 2016. Current Home Medication List Albuterol Sulfate (Proair Respiclick), 2 PUFF INH Q4 PRN for SOB/Wheezing Alprazolam (Xanax), 2 MG PO HS Apixaban (Eliquis), 5 MG PO BID Cetirizine (Zyrtec), 10 MG PO HS Cyclobenzaprine Hcl (Flexeril), 10 MG PO HS Docusate Sodium (Colace), 100 MG PO HS Hydrochlorothiazide (Hctz), 25 MG PO QPM Multivitamin (Multivitamin), 1 TAB PO QAM Omeprazole (Prilosec), 20 MG PO HS PRN for RN Potassium Gluconate (Potassium Gluconate), 595 MG PO DAILY Sertraline (Zoloft), 100 MG PO HS Sulindac (Sulindac), 1 TAB PO HS Tramadol (Ultram), 50 MG PO Q4H PRN for Pain Medication Instructions For Your Scheduled Surgery - Instructions to be given by primary physician (to see 06/11/16): Apixaban (Eliquis), 5 MG PO BID - Hold the following medications the morning of surgery: Potassium Gluconate (Potassium Gluconate), 595 MG PO DAILY Multivitamin (Multivitamin), 1 TAB PO QAM - Take the following medications the morning of surgery with a sip of water OTHERWISE NOTHING TO EAT OR DRINK AFTER MIDNIGHT: Tramadol (Ultram), 50 MG PO Q4H PRN for Pain (may take up to 4 hours prior to surgery if needed) Albuterol Sulfate (Proair Respiclick), 2 PUFF INH Q4 PRN for SOB/Wheezing (use if needed; BRING TO HOSPITAL) - Take the following medications as scheduled the night before surgery: Sertraline (Zoloft), 100 MG PO HS Alprazolam (Xanax), 2 MG PO HS Cetirizine (Zyrtec), 10 MG PO HS Cyclobenzaprine Hcl (Flexeril), 10 MG PO HS Docusate Sodium (Colace), 100 MG PO HS Tramadol (Ultram), 50 MG PO Q4H PRN for Pain Hydrochlorothiazide (Hctz), 25 MG PO QPM Sulindac (Sulindac), 1 TAB PO HS (per pt, usually stops around 2 days prior to surgery) Omeprazole (Prilosec), 20 MG PO HS PRN Albuterol Sulfate (Proair Respiclick), 2 PUFF INH Q4 PRN for SOB/Wheezing If you have any questions please call us at [phone] or [phone] or [phone]
[2016-06-03 10:35] LABS: BASO % 0.5 %; BASO ABS # 0.03 K/uL (0-0.2); COMPLETE YES; HEMATOCRIT 42.5 % (37-47); IG% 0.2 %; LYMPH ABS # 2.13 K/uL (1.2-3.4); MEAN CELL VOLUME 82.5 fL (80-100); MEAN CORPUSCULAR HGB CONC 33.9 g/dl (32-36); MEAN PLATELET VOLUME 9.3 fL (7.4-10.4); MONO % 11.5 %; NEUT % 46.8 %; PLATELET COUNT 258 K/uL (130-400); RED BLOOD COUNT 5.15 M/uL (4.2-5.4); WHITE BLOOD COUNT 5.46 K/uL (4.8-10.8)
[2016-06-03 10:44] LABS: PARTIAL THROMBOPLASTIN RATIO 1.1; PROTHROMBIN TIME (PATIENT) 10.2 SECONDS (9.0-12.0)
[2016-06-03 10:49] LABS: URINE APPEARANCE CLEAR (CLEAR); URINE BILIRUBIN NEG (NEG); URINE COLOR YELLOW; URINE NITRITE NEG (NEG); URINE SPECIFIC GRAVITY 1.011 (1.000-1.030); UROBILINOGEN NEG (NEG); ZZUR CULT IF INDIC CLEAN CATCH NO
[2016-06-03 11:00] LABS: MANUAL MICROSCOPIC REQUIRED? NO; REVIEW REQ? NO
[2016-06-03 11:39] LABS: ESTIMATED AVERAGE GLUCOSE 108 mg/dl; HA1C FLAG Normal (Normal)
[2016-06-03 11:48] LABS: BUN/CREATININE RATIO 22.7 (10-20); CALCIUM 9.6 mg/dl (8.5-10.1); CREATININE 0.72 mg/dl (0.60-1.20); POTASSIUM 4.1 mmol/L (3.5-5.1)
[2016-06-23] VITALS (8 sets, daily range): BP systolic 116–143; BP diastolic 70–84; PULSE 69–94; TEMP 36.5–37; O2SAT 96–98; Ht 162.6 cm; Wt 102.8 kg
[~2016-06-23] VITALS: Ht 162.6 cm; Wt 102.8 kg
[~2016-06-23 05:02] MED LIST changes: -ACETAMINOPHEN 500 MG TAB PO SCH; +ALBU18002 INH; -CEFAZOLIN 2000 MG/60 ML D5W 60 ML IV SCH; +CETI10TA84 PO; +CLN200 PO; -CeleBREX 200 MG CAP PO SCH; -DEXAMETHASONE 4 MG TAB PO SCH; -FAMOTIDINE 20 MG TAB PO SCH; -GABAPENTIN 300 MG CAP PO SCH; -HYDR-5688 PO; -LACTATED RINGER'S 1000ML IV SCH; -LACTATED RINGER'S 500 ML IV SCH; -METOCLOPRAMIDE HCL 10 MG TAB PO SCH; +POTA1TAB PO; -POTASSIUM PO; -RBTDACL PO; -ROPIVACAINE 5MG/ML 30 ML 150 MG, BUPIVACAINE/EPINEPHR 0.5% MPF 30 ML, KETOROLAC TROMETH... INFIL SCH; -SULI200T4 PO
[2016-06-23] MEDS ORDERED: CEFAZOLIN 2000 MG/60 ML D5W 60 ML IV SCH (06:00)
[2016-06-23] MEDS ORDERED: LACTATED RINGER'S 1000ML IV SCH (06:00)
[2016-06-23] MEDS ORDERED: DEXAMETHASONE 4 MG TAB PO SCH (06:00)
[2016-06-23] MEDS ORDERED: LACTATED RINGER'S 1000ML 1,000 ML IV SCH (06:00)
[2016-06-23] MEDS ORDERED: LACTATED RINGER'S 1000ML 500 ML IV ONE (06:00)
[2016-06-23] MEDS ORDERED: CeleBREX 200 MG CAP PO SCH (06:00)
[2016-06-23] MEDS: TRANEXAMIC ACID INJ 1,000 MG in SODIUM CHLORIDE 0.9% 100ML 100 ML IV SCH ×2 (06:00→06:30)
[2016-06-23] MEDS ORDERED: METOCLOPRAMIDE HCL 10 MG TAB PO SCH (06:00)
[2016-06-23] MEDS ORDERED: ROPIVACAINE 5MG/ML 30 ML 150 MG, BUPIVACAINE/EPINEPHR 0.5% MPF 30 ML, KETOROLAC TROMETH... INFIL SCH ×7 (06:00)
[2016-06-23] MEDS ORDERED: ACETAMINOPHEN 500 MG TAB PO SCH (06:00)
[2016-06-23] MEDS ORDERED: GABAPENTIN 300 MG CAP PO SCH (06:00)
[2016-06-23] MEDS ORDERED: FAMOTIDINE 20 MG TAB PO SCH (06:00)
[2016-06-23] MEDS ORDERED: BUPIVACAINE 0.25% 30 ML VIAL ONE (06:12)
[2016-06-23] MEDS ORDERED: BUPIVACAINE 0.5 % 5 MG/1 ML PF 10ML VIAL ONE (06:12)
[2016-06-23] MEDS ORDERED: MIDAZOLAM HCL 1 MG/ML 2ML VIAL ONE ×2 (06:39)
[2016-06-23] MEDS ORDERED: FENTANYL CITRATE INJ 50 MCG/1 ML 2 ML VIAL ONE ×4 (06:39→09:07)
[2016-06-23] MEDS ORDERED: PROPOFOL IV EMULSION 10 MG/ML 20 ML VIAL IV ONE (06:39)
[2016-06-23] MEDS ORDERED: LIDOCAINE HCL 2% 2 ML VIAL (20MG/ML) ONE (06:39)
[2016-06-23] MEDS ORDERED: POVIDONE-IODINE OP SOLN 30 ML BTL ONE (06:49)
[2016-06-23] MEDS ORDERED: BACITRACIN 50000 UNIT VIAL ONE (06:49)
[2016-06-23] MEDS ORDERED: ORTHO JOINT ANESTHETIC ONE (06:49)
[2016-06-23] MEDS ORDERED: KETAMINE HCL INJ 50 MG/ML 10 ML VIAL ONE (06:53)
[2016-06-23] MEDS ORDERED: HYDROmorphone INJ 2 MG/ML SYR/VIAL ONE (07:15)
[2016-06-23] MEDS ORDERED: ROCURONIUM BROMIDE 10 MG/ML 5 ML VIAL ONE (07:46)
[2016-06-23] MEDS ORDERED: ONDANSETRON INJ 2 MG/ML 2 ML VIAL ONE (07:46)
[2016-06-23] MEDS ORDERED: DEXAMETHASONE SOD INJ 4 MG/ML VIAL ONE (07:46)
[2016-06-23] MEDS ORDERED: NEOSTIGMINE METHYLSULFATE 5 MG/5 ML SYR ONE (08:09)
[2016-06-23] MEDS ORDERED: GLYCOPYRROLATE INJ 0.2 MG/ML VIAL ONE (08:09)
--- NOTE | 2016-06-23 08:12 | [facility] Post Operative Brief Note ---
Immediate Operative Summary Operative Date June 23, 2016. Pre-Operative Diagnosis Left Knee Degenerative Joint Disease Post-Operative Diagnosis djd left knee Procedure(s) Performed Left Total Knee Arthroplasty Surgeon Dr. Figueroa Home Health Billing Specialist Surgeon(s) Shun Funez Estimated Blood Loss 5cc Findings severe djd lt knee Specimens bone and cartilage Complication(s) None Disposition Recovery Room / PACU
[2016-06-23] MEDS ORDERED: DiphenhydrAMINE HCL 50 MG/ML VIAL IV PRN (08:15)
[2016-06-23] MEDS ORDERED: ALUMINUM/MAGNESIUM/SIMETH (MAALOX MAX) 30 ML UDC PO PRN (08:15)
[2016-06-23] MEDS ORDERED: ONDANSETRON INJ 2 MG/ML 2 ML VIAL IV PRN ×2 (08:15→09:00)
[2016-06-23] MEDS ORDERED: MAGNESIUM HYDROXIDE SUSP 30 ML UDC PO PRN (08:15)
[2016-06-23] MEDS ORDERED: METOCLOPRAMIDE HCL INJ 5 MG/ML 2 ML VIAL IV PRN (08:15)
[2016-06-23] MEDS ORDERED: SOD PHOSPHATE/SOD BIPHOSPHATE ENEMA 132 ML BTL PR PRN (08:15)
[2016-06-23] MEDS ORDERED: ZOLPIDEM TARTRATE 5 MG TAB PO PRN (08:15)
[2016-06-23] MEDS ORDERED: BISACODYL 10 MG SUPP PR PRN (08:15)
[2016-06-23] MEDS ORDERED: NON-FORMULARY MEDICATION (Omeprazole (Prilosec) 20 MG) PO PRN (08:30)
[2016-06-23] MEDS ORDERED: ALBUTEROL HFA INHALER 18 GM INH PRN (08:30)
[2016-06-23] MEDS ORDERED: TRAMADOL HCL 50 MG TAB PO PRN (08:30)
--- NOTE | 2016-06-23 08:47 | OPERATIVE REPORT ---
DATE OF OPERATION: 06/23/2016 PREOPERATIVE DIAGNOSIS: Severe end-stage tricompartmental degenerative joint disease, left knee. POSTOPERATIVE DIAGNOSIS: Same. PROCEDURE: Left total knee arthroplasty utilizing Mckeon \T\ Nephew Journey II patient matched with block total knee arthroplasty size 6 femur, 4 tibia, 10 poly, and 32 oval patella. SURGEON: Adam Figueroa DO OPERATING ROOM NURSE: BRIAN Yeung, who was necessary for prepping, draping, retraction, wound closure of the deep fascia, subcutaneous and skin and was necessary for the case. ESTIMATED BLOOD LOSS: 5 mL. COMPLICATIONS: None. TOURNIQUET TIME: 40 minutes. HISTORY OF PRESENT ILLNESS: The patient presents as a very pleasant 50-year-old white female, being seen and evaluated for complaints of ongoing pain attributable to her left knee. She has been nonresponsive to conservative therapy including physical therapy, anti-inflammatories, relative rest, activity modifications as well as previous injections. She presents for left total knee arthroplasty. DESCRIPTION OF PROCEDURE: The patient was properly prepped and draped in supine position for total knee arthroplasty after identifying the appropriate surgical site. An anterior midline incision was made through the subcutaneous tissues down to the region of the extensor mechanism. A medial parapatellar incision was subsequently made. Meticulous hemostasis was obtained and performed at all times. The patella having been subluxed lateralward, medial and lateral meniscal remnants were excised. The patellar cut was then initially made and was sized to the appropriate size. After subluxing the tibia forward the appropriate meniscal fragments having been removed the distal femur was then cut first utilizing a Mckeon and Nephew block. The distal femoral cuts and chamfer cuts were all made under direct visualization and the proximal tibial osteotomy cut was also made utilizing Mckeon and Nephew blocks and checked with an extramedullary guide. The appropriate trial components on the femur and tibia were placed. Appropriate trial spacers were used to check flexion and extension gaps. With flexion and extension gaps being equal, the components were then subsequently after thorough irrigation and debridement lavage components were then subsequently cemented in the following order: femur, tibia and patella. Exparel was used for intraoperative anesthesia, the medial parapatellar incision was closed utilizing #1 Vicryl, subQ was closed with 2-0 Vicryl, skin was closed with skin clips. A sterile compression dressing was placed. The patient was taken to recovery room in stable condition. Due to the complex nature of the procedure, the entire surgery was performed with the operational assistance of BRIAN Yeung. The assistant reading teacher, under direct supervision, was involved in the actual performance of all aspects of the surgical procedure including hemostasis, tissue retraction and incision, instrument management, patient positioning, and wound closure. I attest to the content of the Intraoperative Record and any orders documented therein. Any exceptio ns are noted below.
[2016-06-23] MEDS ORDERED: MoRPHine SULFATE 2 MG/ML CARP IV PRN (09:00)
[2016-06-23] MEDS ORDERED: NON-FORMULARY MEDICATION (Potassium Gluconate 595 MG) PO SCH (09:00)
[2016-06-23] MEDS ORDERED: HYDROmorphone INJ 1 MG/ML SYR IV PRN (09:00)
[2016-06-23] MEDS ORDERED: LABETALOL HCL IV 5 MG/ML 20ML IV PRN (09:00)
[2016-06-23] MEDS ORDERED: MEPERIDINE HCL 25 MG/ML CARP IV PRN (09:00)
[2016-06-23] MEDS ORDERED: FENTANYL CITRATE INJ 50 MCG/1 ML 2 ML VIAL IV PRN (09:00)
[2016-06-23] MEDS ORDERED: EpHEDrine SULFATE INJ 50 MG/ML AMP IV PRN (09:00)
[2016-06-23] MEDS ORDERED: KETOROLAC TROMETHAMINE 30 MG/ML VIAL IV PRN (09:00)
[2016-06-23] MEDS ORDERED: ATROPINE SULFATE 0.1 MG/ML 5ML SYR IV PRN (09:00)
--- NOTE | 2016-06-23 09:34 | DIAGNOSTIC IMAGING REPORT ---
LEFT KNEE 1 OR 2 VIEWS ROUTINE CLINICAL HISTORY: AP/LATERAL IN PACU LEFT KNEE knee replacement COMPARISON: None. DISCUSSION: Total left knee prosthetic. Good contact during prosthetic and underlying bone. Expected soft tissue postoperative change IMPRESSION: Anatomic alignment status post total left knee prosthetic. Electronically signed by: Inocente Palafox M.D. 06/23/2016 9:33 AM Dictated Date/Time: 06/23/2016 9:33 AM
--- NOTE | 2016-06-23 10:02 | Anesthesiology Progress Note ---
Anesthesia Post Op Note Date & Time June 23, 2016 at 10:03 Vital Signs Pain Intensity: 4 Vital Signs Past 12 Hours Date Time Temp Pulse Resp B/P Pulse Ox O2 Delivery O2 Flow Rate FiO2 06/23/16 09:25 36.2 84 16 136/79 92 Nasal Cannula 3 06/23/16 09:15 74 16 132/84 92 Nasal Cannula 2 06/23/16 09:05 82 16 149/92 96 Mask 10 06/23/16 08:55 86 16 140/89 96 Mask 10 06/23/16 08:49 36.3 87 16 127/78 96 Mask 10 06/23/16 05:41 36.5 80 2 138/84 96 Room Air Notes Mental Status: alert / awake / arousable, participated in evaluation Pt Amnestic to Procedure: Yes Nausea / Vomiting: adequately controlled Pain: adequately controlled Airway Patency, RR, SpO2: stable & adequate BP & HR: stable & adequate Hydration State: stable & adequate Anesthetic Complications: no major complications apparent
[2016-06-23] MEDS ORDERED: MoRPHine SULFATE 4 MG/ML 1 ML CARP\\VIAL ONE (10:04)
[2016-06-23] MEDS: OXYCODONE HCL 10 MG TABCR (OXYCONTIN) PO SCH ×2 (10:49→22:35)
[2016-06-23] MEDS: SODIUM CHLORIDE 0.9% 1000ML 1,000 ML IV SCH ×2 (10:50→20:14)
[2016-06-23] MEDS: OXYCODONE HCL IR 5 MG TAB (IMMEDIATE RELEASE) PO PRN ×2 (12:33→18:16)
[2016-06-23] MEDS: HYDROCHLOROTHIAZIDE 25 MG TAB PO SCH (12:35)
[2016-06-23] MEDS: ACETAMINOPHEN 500 MG TAB PO SCH ×2 (14:12→22:36)
[2016-06-23] MEDS: MoRPHine SULFATE 10 MG/ML CARP/VIAL IV PRN (15:59)
[2016-06-23] MEDS: FERROUS GLUCONATE 324 MG TAB PO SCH (17:39)
[2016-06-23] MEDS: TRAMADOL HCL 50 MG TAB PO PRN (20:13)
[2016-06-23] MEDS: CEFAZOLIN IV 1,000 MG in DEXTROSE 5% 50ML 50 ML IV SCH (20:14)
[2016-06-23] MEDS: CYCLOBENZAPRINE HCL 10 MG TAB PO SCH (20:38)
[2016-06-23] MEDS: SERTRALINE HCL 100 MG TAB PO SCH (20:38)
[2016-06-23] MEDS: ALPRAZOLAM 0.5 MG TAB PO SCH (20:38)
[2016-06-23] MEDS: DOCUSATE SODIUM 100 MG CAP PO SCH (20:39)
[2016-06-23] MEDS: SENNA 8.6 MG TAB PO SCH (20:39)
[2016-06-23] MEDS: CETIRIZINE HCL 10 MG TAB PO SCH (20:40)
[2016-06-23] MEDS ORDERED: DOCUSATE SODIUM 100 MG CAP PO SCH (21:00)
[2016-06-24 03:44] VITALS: BP 112/56; PULSE 82; TEMP 36.9; O2SAT 94
[2016-06-24] MEDS: CEFAZOLIN IV 1,000 MG in DEXTROSE 5% 50ML 50 ML IV SCH (04:17)
[2016-06-24] MEDS: TRAMADOL HCL 50 MG TAB PO PRN (05:56)
[2016-06-24] MEDS: ACETAMINOPHEN 500 MG TAB PO SCH ×3 (05:57→21:50)
[2016-06-24] MEDS: SODIUM CHLORIDE 0.9% 1000ML 1,000 ML IV SCH (05:58)
[2016-06-24 06:14] LABS: HEMATOCRIT 32.1 % (37-47); MEAN CELL VOLUME 81.7 fL (80-100); MEAN CORPUSCULAR HGB CONC 34.3 g/dl (32-36); MEAN PLATELET VOLUME 9.3 fL (7.4-10.4); PLATELET COUNT 206 K/uL (130-400); RED BLOOD COUNT 3.93 M/uL (4.2-5.4); WHITE BLOOD COUNT 10.57 K/uL (4.8-10.8)
[2016-06-24 06:44] LABS: BUN/CREATININE RATIO 13.5 (10-20); CALCIUM 8.6 mg/dl (8.5-10.1); CREATININE 0.68 mg/dl (0.60-1.20); POTASSIUM 3.6 mmol/L (3.5-5.1)
[2016-06-24 07:08] VITALS: BP 130/77; PULSE 74; TEMP 36.9; O2SAT 95
[2016-06-24] MEDS: OXYCODONE HCL IR 5 MG TAB (IMMEDIATE RELEASE) PO PRN ×3 (07:34→18:30)
--- NOTE | 2016-06-24 08:15 | Anesthesiology Progress Note ---
Anesthesia Post Op Note Date & Time June 24, 2016 at 08:12 Vital Signs Pain Intensity: 9.0 Vital Signs Past 12 Hours Date Time Temp Pulse Resp B/P Pulse Ox O2 Delivery O2 Flow Rate FiO2 06/24/16 07:08 36.9 74 16 130/77 95 Room Air 06/24/16 03:44 36.9 82 16 112/56 94 Room Air 06/23/16 23:45 Room Air 06/23/16 22:58 36.8 84 17 131/72 96 Room Air Notes Mental Status: alert / awake / arousable Pt Amnestic to Procedure: Yes Nausea / Vomiting: adequately controlled Pain: see Notes Airway Patency, RR, SpO2: stable & adequate BP & HR: stable & adequate Hydration State: stable & adequate Neuraxial Anesthesia: sensory block resolved Patient unsatisfied with her analgesia.....pain is not at all controlled, will discuss with Physician Medical Service Technician, Shun Madera.
[2016-06-24] MEDS ORDERED: NURSING VERBAL MED ORDER ONE (08:30)
[2016-06-24] MEDS: DOCUSATE SODIUM 100 MG CAP PO SCH ×2 (08:57→20:31)
[2016-06-24] MEDS: HYDROCHLOROTHIAZIDE 25 MG TAB PO SCH (08:57)
[2016-06-24] MEDS: PANTOprazole SOD 40 MG TAB PO SCH (08:57)
[2016-06-24] MEDS: FERROUS GLUCONATE 324 MG TAB PO SCH ×3 (08:57→18:30)
[2016-06-24] MEDS: APIXABAN 2.5 MG TAB PO SCH ×2 (08:57→20:30)
[2016-06-24] MEDS: MULTIVITAMIN TAB PO SCH (08:58)
[2016-06-24 09:45] VITALS: BP 155/75; PULSE 90; O2SAT 95
[2016-06-24] MEDS: MoRPHine SULFATE 4 MG/ML 1 ML CARP\\VIAL IV PRN ×2 (09:54→21:53)
--- NOTE | 2016-06-24 10:39 | Orthopedic Progress Note ---
Orthopedic Progress Note Date of Service June 24, 2016. Subjective Post OP Day: 1 Reports: feeling well (Pain not well controlled) Objective N/V intact, dressing C/D/I (Hemovac in place), toes mobile Date Time Temp Pulse Resp B/P Pulse Ox O2 Delivery O2 Flow Rate FiO2 06/24/16 09:45 90 95 06/24/16 07:15 Room Air 06/24/16 07:08 36.9 74 16 130/77 95 Room Air 06/24/16 03:44 36.9 82 16 112/56 94 Room Air 06/23/16 23:45 Room Air 06/23/16 22:58 36.8 84 17 131/72 96 Room Air 06/23/16 19:16 37.0 74 18 126/70 96 Room Air 06/23/16 15:50 Room Air 06/23/16 15:04 36.8 69 18 122/70 96 Room Air 06/23/16 12:04 94 18 116/78 98 Nasal Cannula 2.0 06/23/16 10:45 82 16 143/79 96 Nasal Cannula 2.0 Laboratory Results 24 Hours: Test 06/24/16 05:24 Hematocrit 32.1 % Hemoglobin 11.0 g/dL Assessment & Plan Assessment: 50 yo female stable POD #1 s/p left TKA Plan: 1. Med management 2. DVT prophylaxis- resume Gabriella Maynard, SCDs 3. PT/OT 4. D/C planning- home w/ HH
[2016-06-24 11:03] VITALS: BP 132/77; PULSE 75; TEMP 36.7; O2SAT 95
[2016-06-24] MEDS: OXYCODONE HCL 10 MG TABCR (OXYCONTIN) PO SCH (11:04)
[2016-06-24 15:20] VITALS: BP 131/77; PULSE 81; TEMP 36.7; O2SAT 95
[2016-06-24] MEDS: MoRPHine SULFATE 10 MG/ML CARP/VIAL IV PRN (16:00)
--- NOTE | 2016-06-24 16:20 | Discharge Instructions ---
Discharge Instructions Date of Service June 24, 2016. Admission Reason for Admission: Unilateral Primary Osteoarthritis Knee Left Discharge Discharge Diagnosis / Problem: Left Knee Djd Discharge Goals Goal(s): Decrease discomfort, Improve function Activity Recommendations Activity Limitations: per Instructions/Follow-up section Weightbearing Status: Left weightbearing (as tolerated) . Instructions / Follow-Up Instructions / Follow-Up ACTIVITY RECOMMENDATIONS: SELF CARE INSTRUCTIONS AFTER TOTAL KNEE REPLACEMENT A. You may need to continue a physical therapy program after discharge from the hospital. There are several options available to you. Your doctor will assist you in selecting the best one for you. 1. An out-patient facility 2 to 3 times a week for therapy or home therapy. 2. Continue working on all exercises taught to you in the hospital. Your goals should be to increase bending of your knee to 90 degrees and beyond and to fully straighten your knee. B. You may progress at your own pace from walking with a walker or crutches to a cane; then to no assistive devices. C. Make walking a part of your daily routine. Be up as much as comfortable with rest periods throughout the day. Rest with leg elevation is very important. Use the ice wrap frequently for the first 3-4 weeks. D. There are no restrictions on activities. You may ride in a car, shop, participate in maintenance man and all social activities. E. Wear the long elastic stockings (ALONSO hose) 20 hours a day for 2 weeks after surgery. They can be removed several times a day for laundering and for a bath. F. You may shower, no tub baths until cleared by your doctor. SPECIAL CARE INSTRUCTIONS: VERY IMPORTANT TO READ AND REVIEW A. There are a few signs you need to watch for after you are home. Call [facility] if you notice any of the followin. Increased severe knee pain. Some pain is expected especially when you exercise. 2. Increased swelling in your leg or knee; pain or swelling of the calf muscle in either lower leg. 3. Any fluid drainage from the incision. 4. Shortness of breath or chest pain. B. Please call [facility] at if you have any concerns or questions about your operation or recovery. The doctor or his nurse will return your call promptly. C. You must take antibiotics before dental work, bladder, bowel or other surgery. Your doctor will provide you with a permanent care to carry describing this precaution. IMPORTANT: * CONTINUE YOUR APIXABAN PRESCRIBED. * CALL IF INCREASED PAIN, REDNESS, DRAINAGE OR FEVER GREATER THAT 101. * WEAR ALONSO HOSE 20 HOURS PER DAY FOR 2 WEEKS. * DERMABOND Prineo- This is a mesh tape dressing that is covered with glue. It should remain in place until the incision is properly healed, usually 10-14 days. This dressing is designed to naturally slough off. You may trim the excess mesh tape as it peels off. Incision may be briefly wet in a shower. Dry immediately by blotting with a clean, dry towel. Do not bath or swim until instructed by your doctor. Do not scratch, rub, or pick at the dressing. Do not apply any topical ointments or lotions until dressing is completely removed and/or instructed by your doctor. There may be a small piece of suture material at one end of your incision. Do not pull or trim this. If it is bothersome or catching on clothing, you may cover it with a band-aid. . FOLLOW UP VISIT: If appointment is not already scheduled: Please call [facility] to make a follow-up appointment for 2 weeks after your surgery at . Current Hospital Diet Patient's current hospital diet: Regular Diet Discharge Diet Recommended Diet: Regular Diet Procedures Procedures Performed: Left Total Knee Arthroplasty Pending Studies Studies pending at discharge: no Laboratory Results Hemoglobin A1c Test 06/03/16 10:12 Range/Units Estimated Average Glucose 108 mg/dl Hemoglobin A1c 5.4 4.5-5.6 % Medical Emergencies . Who to Call and When: Medical Emergencies: If at any time you feel your situation is an emergency, please call 911 immediately. . Non-Emergent Contact Non-Emergency issues call your: Surgeon Call Non-Emergent contact if: temperature is above 101.5, your pain is not controlled, your pain is worsening, wound has increased drainage, wound has increased redness . "Provider Documentation" section prepared by Shun Clark. . VTE Core Measure Inpt VTE Proph given/why not?: Other Anticoagulation, T.E.D. Stockings, SCD's [place] Drug Monitoring Program Search Results: patient reviewed within database, no issues identified
[2016-06-24] MEDS: SENNA 8.6 MG TAB PO SCH (20:31)
[2016-06-24] MEDS: CYCLOBENZAPRINE HCL 10 MG TAB PO SCH (20:31)
[2016-06-24] MEDS: CETIRIZINE HCL 10 MG TAB PO SCH (20:32)
[2016-06-24] MEDS: SERTRALINE HCL 100 MG TAB PO SCH (20:32)
[2016-06-24] MEDS: ALPRAZOLAM 0.5 MG TAB PO SCH (20:34)
[2016-06-24] MEDS: OXYCODONE HCL 20 MG TABCR (OXYCONTIN) PO SCH (21:50)
[2016-06-25] VITALS: BP 137/76; PULSE 72; TEMP 37.2; O2SAT 94
[2016-06-25] MEDS: OXYCODONE HCL IR 5 MG TAB (IMMEDIATE RELEASE) PO PRN ×3 (04:01→12:14)
[2016-06-25] MEDS: TRAMADOL HCL 50 MG TAB PO PRN (06:43)
[2016-06-25] MEDS: ACETAMINOPHEN 500 MG TAB PO SCH (06:44)
[2016-06-25 07:22] VITALS: BP 143/83; PULSE 75; TEMP 36.8; O2SAT 94
[2016-06-25] MEDS: HYDROCHLOROTHIAZIDE 25 MG TAB PO SCH (08:20)
[2016-06-25] MEDS: FERROUS GLUCONATE 324 MG TAB PO SCH (08:20)
[2016-06-25] MEDS: DOCUSATE SODIUM 100 MG CAP PO SCH (08:20)
[2016-06-25] MEDS: APIXABAN 2.5 MG TAB PO SCH (08:20)
[2016-06-25] MEDS: MULTIVITAMIN TAB PO SCH (08:21)
[2016-06-25] MEDS: PANTOprazole SOD 40 MG TAB PO SCH (08:21)
--- NOTE | 2016-06-25 08:40 | Orthopedic Progress Note ---
Orthopedic Progress Note Date of Service June 25, 2016. Subjective Post OP Day: 2 Reports: feeling well, Denies: SOB, calf pain, chest pain, light headedness, nausea / vomiting Additional Notes: Pt had been having pain control issues however they seem to be better today. States that after doing her exercises with nursing staff today, that her knee feels better. No BM yet but passing flatus. Wanting to go home today. No new complaints. Objective calves soft nontender, N/V intact, incision C/D/I, A&O x3, toes mobile Date Time Temp Pulse Resp B/P Pulse Ox O2 Delivery O2 Flow Rate FiO2 06/25/16 07:25 Room Air 06/25/16 07:22 36.8 75 16 143/83 94 Room Air 06/25/16 00:00 Room Air 06/25/16 00:00 37.2 72 16 137/76 94 Room Air 06/24/16 20:40 Room Air 06/24/16 15:20 36.7 81 18 131/77 95 Room Air 06/24/16 11:03 36.7 75 16 132/77 95 Room Air 06/24/16 09:45 90 95 Assessment & Plan Assessment: 50 yo female stable POD #2 s/p left TKA Plan: 1. Med management 2. DVT prophylaxis- resume Aleyda, TEDs, SCDs 3. PT/OT 4. D/C planning- home w/ HH Inhouse Planning Pain Management: Oxycontin, Ultram, Morphine, PO Tylenol, Oxy IR DVT Prophylaxis: TEDs, SCDs, other (Apixaban) Discharge Planning Discharge Planning: home with home health Pain Management: Oxycontin, PO Tylenol, Oxy IR DVT Prophylaxis: TEDs, other (Apixaban) Therapy: Physical Therapy
[2016-06-25] MEDS ORDERED: ACET-1138 PO (08:45)
[2016-06-25] MEDS ORDERED: SNK PO (08:45)
[2016-06-25] MEDS ORDERED: RXC5 PO (08:45)
[2016-06-25] MEDS ORDERED: OXYSR/20 PO (08:45)
[2016-06-25] MEDS: OXYCODONE HCL 20 MG TABCR (OXYCONTIN) PO SCH (10:18)
[2016-06-25 10:22] VITALS: BP 143/83; PULSE 75; TEMP 36.8; O2SAT 94
--- NOTE | 2016-06-28 22:15 | DISCHARGE SUMMARY ---
DISCHARGE DIAGNOSIS: Degenerative joint disease, left knee. SECONDARY DIAGNOSES: Chronic back pain, deep vein thrombosis in the past, incisional hernia, and pulmonary emboli. CONSULTS: None. COMPLICATIONS: None. PROCEDURES: Left total knee arthroplasty performed by Dr. Figueroa on 06/23/2016. BRIEF HISTORY: As dictated in history and physical. HOSPITAL SUMMARY: The patient was admitted on the above date and had the above-noted surgery performed which she tolerated well. On the first postoperative day, patient was feeling well, neurovascularly intact, dressings are clean, dry and intact. Toes were mobile. Hemoglobin was 11.0, vital signs were stable and she was afebrile. She was started on physical therapy protocol and continued on DVT prophylaxis with Eliquis and ALONSO hose and SCDs. By her second postoperative day, she had been having pain control issues; however, this seemed to be better. She states that after doing her exercises with nursing staff that day that her knee was feeling better. She had not yet had a BM, but was passing flatus and wanting to go home. Calves were soft and nontender, neurovascularly intact. Incision was clean, dry and intact. Toes were mobile. Vital signs were stable, she was afebrile and she was progressing with her physical therapy and it was felt she could be discharged to home. For further review, please see chart. LABORATORY AND X-RAY DATA: As per chart. DISCHARGE INSTRUCTIONS: The patient was discharged to home in satisfactory condition on 06/25/2016. DIET: Regular. ACTIVITY: Weightbearing as tolerated left lower extremity. Follow TK instruction sheets and special care instructions as noted. FOLLOWUP: Follow up with Dr. Figueroa in 2 weeks. The patient to call for appointment if one has not been made for you. DISCHARGE MEDICATIONS: Acetaminophen 1000 mg p.o. q. 8 hours, OxyContin 20 mg p.o. q. 12 hours, oxycodone 5-10 mg p.o. q. 4 hours p.r.n., senna 17.2 mg p.o. at bedtime. Resume home meds including albuterol 2 puffs inhaled q. 4 hours p.r.n., alprazolam 2 mg at bedtime, apixaban 5 mg p.o. b.i.d., Zyrtec 10 mg at bedtime, Flexeril 10 mg p.o. at bedtime, docusate sodium 100 mg at bedtime, hydrochlorothiazide 25 mg p.o. q.p.m., multivitamin 1 tab p.o. q.a.m., omeprazole 20 mg p.o. at bedtime, potassium gluconate 595 mg p.o. daily, sertraline 100 mg p.o. at bedtime, tramadol 50 mg p.o. q. 4 hours p.r.n. and stop taking sulindac.
== END 2016-06-25 12:33 | disposition home health service (06) | DRG 470 ==
LOC: ENRESERVTM → ENRESERVDT → C.ACU 05:02 → C.3E 08:16
PROVIDERS: ADMIT Orthopaedic Surgery; ATTEND Orthopaedic Surgery
PROC: 0SRD0J9 Replacement of Left Knee Joint with Synthetic Substitute, Cemented, Open Approach (ICD-10-PCS; principal; 2016-06-23 07:00)
DX: M17.12 Unilateral primary osteoarthritis, left knee (principal); Z86.711 Personal history of pulmonary embolism; Z79.899 Other long term (current) drug therapy; Z96.651 Presence of right artificial knee joint

== ENCOUNTER → 2016-08-02 | Outpatient (CLI) | payer OTHER ==
[~2016-08-02] MED LIST changes: +ACET-1138 PO; -CLN200 PO; +OXYSR/20 PO; +RXC5 PO; +SNK PO
[2016-08-02 17:37] LABS: ALT/SGPT 23 U/L (12-78); BLOOD UREA NITROGEN 8 mg/dl (7-18); BUN/CREATININE RATIO 11.9 (10-20); CALCIUM 9.6 mg/dl (8.5-10.1); CARBON DIOXIDE 29 mmol/L (21-32); CHLORIDE 105 mmol/L (98-107); CHOLESTEROL 240 mg/dl (0-200); GLUCOSE 90 mg/dl (70-99); POTASSIUM 4.3 mmol/L (3.5-5.1); SODIUM 141 mmol/L (136-145)
[2016-08-02 17:48] LABS: ALB/GLOB RATIO 0.9 (0.9-2); ALKALINE PHOSPHATASE 107 U/L (45-117); AST/SGOT 16 U/L (15-37); CHOLESTEROL/HDL RATIO 4.8; HDL CHOLESTEROL 50 mg/dl; LDL CHOLESTEROL CALCULATED 159 mg/dl; THYROID STIMULATING HORMONE 0.826 uIu/ml (0.300-4.500); TRIGLYCERIDES 155 mg/dl (0-150); VERY LOW DENSITY LIPOPROT CALC 31 mg/dl
[2016-08-03 06:04] LABS: ESTIMATED AVERAGE GLUCOSE 111 mg/dl; HA1C FLAG Normal (Normal)
== END | disposition home or self-care (01) ==
LOC: C.LABPBG 11:34
PROVIDERS: ATTEND Physician Assistant
DX: Z00.00 Encounter for general adult medical examination without abnormal findings (principal); Z13.21 Encounter for screening for nutritional disorder; Z13.1 Encounter for screening for diabetes mellitus

== ENCOUNTER → 2016-08-06 | Outpatient (CLI) | payer OTHER ==
[~2016-08-06] MED LIST changes: +GADAVIST IV PRN
--- NOTE | 2016-08-06 11:53 | DIAGNOSTIC IMAGING REPORT ---
MRI OF THE BRAIN WITHOUT AND WITH IV CONTRAST CLINICAL HISTORY: Chronic daily headaches. COMPARISON STUDY: No previous studies for comparison. TECHNIQUE: Utilizing a 1.5 Brynn magnet and dedicated coil, multiplanar, multiecho imaging of the brain was performed pre and postcontrast administration. IV administration of 10 mL of Gadavist contrast was uneventful. FINDINGS: There are no areas of restricted diffusion. No acute intracranial hemorrhage, midline shift or mass effect is present. Brain volume is normal. Ventricular system is normal. Basilar cisterns are patent. There are no extra-axial collections. Flow-voids for the major intracranial vessels are present. A few small white matter T2 hyperintense foci are noted. There is a linear branching enhancing focus within the left parietal lobe consistent with a developmental venous anomaly. There is no intracranial mass or pathologic enhancement. Calvarial signal is maintained. There is a partially empty sella. There is no evidence of a Chiari 1 malformation. Flow-voids for the major intracranial vessels are present. IMPRESSION: 1. No acute intracranial findings. 2. A few scattered small white matter T2 hyperintense foci which are of doubtful significance and may reflect minimal small vessel disease or sequela of migraine headaches. 3. Linear branching enhancing focus within the left parietal lobe consistent with a developmental venous anomaly, a finding of no clinical significance. Electronically signed by: Erlin Coelho M.D. 08/06/2016 11:52 AM Dictated Date/Time: 08/06/2016 11:47 AM
== END | disposition home or self-care (01) ==
LOC: C.MRI 10:35
PROVIDERS: ATTEND Physician Assistant
DX: R51 Headache (principal)

== ENCOUNTER → 2016-12-20 | Outpatient (CLI) | payer OTHER ==
[~2016-12-20] MED LIST changes: -GADAVIST IV PRN
--- NOTE | 2016-12-20 11:25 | DIAGNOSTIC IMAGING REPORT ---
L SHOULDER MIN 2 VIEWS ROUTINE CLINICAL HISTORY: M25.513 LEFT SHOULDER PAIN COMPARISON: None. DISCUSSION: No acute fractures or dislocations are visualized. There is a 14 mm tendon is/peritendinous calcification, likely are presenting calcific tendinitis. IMPRESSION: 1. Suspected calcific tendinitis 2. No acute fractures or dislocations. Electronically signed by: Rigoberto George M.D. 12/20/2016 11:24 AM Dictated Date/Time: 12/20/2016 11:23 AM
== END | disposition home or self-care (01) ==
LOC: C.RAD 10:50
PROVIDERS: ATTEND Physician Assistant
DX: M25.512 Pain in left shoulder (principal); R93.7 Abnormal findings on diagnostic imaging of other parts of musculoskeletal system

== ENCOUNTER → 2017-04-08 | Outpatient (CLI) | payer OTHER ==
--- NOTE | 2017-04-08 14:38 | DIAGNOSTIC IMAGING REPORT ---
CERVICAL WITHOUT CONTRAST HISTORY: Pain. Neuropathy. DISC HERNIATION TECHNIQUE: Multiplanar multisequence MRI of the cervical spine was performed without the use of contrast. COMPARISON STUDY: None. FINDINGS: Signal characteristics the vertebral bodies are unremarkable. Signal characteristics the cervical cord are within normal limits. There there are findings of degenerative disc change primarily from C4 through C7. C2-C3: No significant central canal or neural foraminal narrowing. C3-C4: Minimal central disc bulge. No impact with cervical cord or neural foramina. C4-C5: Mild broad-based disc herniation. Mild impact anterior aspect of the cervical cord. Patent neural foramina bilaterally. C5-C6: Moderate broad-based disc herniation. Mild impact anterior cervical cord. Significant narrowing of the neural foramina patent bilaterally. C6-C7: Right posterior disc herniation. Moderate impact right anterior aspect cervical cord with significant narrowing of the right neuroforamina. C7-T1: No significant central canal or neural foraminal narrowing. IMPRESSION: 1. Right posterior disc herniation C6-C7 with moderate impact upon the right anterior cervical cord and significant narrowing of the right neuroforamina. 2. Moderate broad-based disc herniation C5-C6 with mild impact upon the anterior cervical cord. Significant narrowing of the neuroforamina bilaterally. 3. Mild broad-based disc herniation with mild impact anterior cervical cord at C4-C5. The above report was generated using voice recognition software. It may contain grammatical, syntax or spelling errors. Electronically signed by: Inocente Palafox M.D. 04/08/2017 2:37 PM Dictated Date/Time: 04/08/2017 2:31 PM
== END | disposition home or self-care (01) ==
LOC: C.MRI 13:50
PROVIDERS: ATTEND Orthopaedic Surgery Orthopaedic Surgery of the Spine
DX: M50.20 Other cervical disc displacement, unspecified cervical region (principal)